=== PATIENT | female | born 1960 ===

== ENCOUNTER 2023-08-13 11:36 | Outpatient (REF) | payer MEDICAID, SELFPAY ==
[2023-08-13 13:26] LABS: Hematocrit 38.9 % (37.0-47.0); Hemoglobin 12.4 g/dl (12.0-16.0); Mean Corpuscular HGB Conc 31.9 g/dl (31.0-35.0); Mean Corpuscular Hemoglobin 29.7 pg (27.0-33.0); Mean Corpuscular Volume 93.1 fL (80.0-98.0); Mean Platelet Volume 11.3 fL (9.4-12.3); Platelet Count 278 X10*3/uL (160-400); Red Blood Count 4.18 X10*6/uL (4.20-5.50); Red Cell Distribution Width 12.7 % (11.0-16.0); White Blood Count 11.1 X10*3/uL (4.8-10.8)
[2023-08-13 13:38] LABS: Estimated Average Glucose 103 mg/dL; Hemoglobin A1c % 5.2 % (<6.0)
[2023-08-13 13:49] LABS: Syphilis Screen Nonreactive (Nonreactive)
[2023-08-13 13:52] LABS: Alanine Aminotransferase 7 U/L (0-31); Albumin Level 4.5 g/dL (3.5-5.0); Alkaline Phosphatase 91 U/L (39-117); Anion Gap 11 (12-20); Aspartate Amino Transferase 16 U/L (5-31); Bilirubin Total 0.3 mg/dL (0.0-1.0); Blood Urea Nitrogen 12 mg/dL (9-16); Calcium 9.5 mg/dL (8.4-10.2); Carbon Dioxide 26 mmol/L (22-29); Chloride 107 mmol/L (96-108); Cholesterol 203 mg/dL (<200); Estimated Glomerular Filt Rate > 60; Glucose Random 98 mg/dL (60-115); HDL Cholesterol 48 mg/dL (>40); LDL Cholesterol Calculated 130 mg/dL (<100); Potassium 4.2 mmol/L (3.3-5.1); Sodium 140 mmol/L (135-145); Total Protein 8.3 g/dL (6.5-8.0); Triglycerides 129 mg/dL (<150)
[2023-08-13 13:53] LABS: Creatinine Urine 63.19 mg/dL; Microalbum/Creatinine Ratio Ur 58.5 ug/mg cr (<30)
[2023-08-13 13:57] LABS: TSH reflex Free T4 1.24 uIU/mL (0.32-4.0)
[2023-08-13 15:43] LABS: CT PCR NOT DETECTED (Not Detect.); NG PCR NOT DETECTED (Not Detect.)
[2023-08-14 08:20] LABS: HBS Num1 11.99 mIU/mL (0-7.99); HBc Num1 6.98 S/CO (0.00-0.79); HIV AB/AG Nonreactive (Nonreactive); HIV Num 1 0.07 S/CO (0.00-0.99); ~HepC Num1 0.09 S/CO (0.00-0.79); ~Hepatitis C Antibody Nonreactive (Nonreactive)
[2023-08-14 11:04] LABS: HBS Num2 12.15 mIU/mL (0-7.99); HBc Num2 7.03 S/CO; HBc Num3 6.99 S/CO; Hepatitis B Core Antibody Reactive (Nonreactive); ~Hepatitis B Surface Antibody REACTIVE (Nonreactive)
[2023-08-15 17:04] LABS: TS Negative Control Passed; TS Panel A 0; TS Panel B 0; TS Positive Control Passed; TSpotTB Negative (Negative)
== END 2023-08-13 11:37 | disposition home or self-care (01) ==
LOC: HO.HHCL 11:36
PROVIDERS: Visit Provider Student in an Organized Health Care Education/Training Program
DX: Z00.00 Encounter for general adult medical examination without abnormal findings (principal); Z11.4 Encounter for screening for human immunodeficiency virus [HIV]; Z11.1 Encounter for screening for respiratory tuberculosis; Z11.3 Encounter for screening for infections with a predominantly sexual mode of transmission
CPT/HCPCS: 0353U; 36415; 80053; 80061; 82043; 82570; 83036; 84443; 85027; 86481; 86704; 86705; 86706; 86780; 86803; 87389

== ENCOUNTER 2023-09-17 | Outpatient (REF) | payer MEDICAID, SELFPAY ==
[2023-09-24 07:53] LABS: HPV mRNA E6/E7 rflx Not Detected (Not Detected)
== END 2023-09-17 00:01 ==
LOC: HO.HHCLNP
PROVIDERS: Visit Provider Advanced Practice Midwife
DX: Z12.4 Encounter for screening for malignant neoplasm of cervix (principal); Z11.51 Encounter for screening for human papillomavirus (HPV)
CPT/HCPCS: 87624; 88142

== ENCOUNTER 2023-10-30 09:36 | Outpatient (AMB) | payer MEDICAID, SELFPAY ==
--- NOTE | 2023-10-30 09:38 | MHC.OFFVIS ---
Intake Intake Visit Reasons: LDCT SD HPI HPI Comments History of Present Illness Details Susan is a pleasant year old female, current 1/2ppd smoker with a 47 PYH. Patient has been smoking since age 15 for 48 years at 1 ppd, decreased to 1/2 1-2 yrs ago. Denies marijuana use. Denies exposure to chemicals or substances like asbestos. Denies second hand smoke exposure. Denies known family history of lung cancer. Denies personal history of cancers. Denies chest CT in last year. Denies recent travel outside the [place]. Denies testing positive for COVID. Admits receiving COVID Vaccine. Denies fever, chills, chest pain, new cough, hemoptysis or unintentional weight loss. Lung Cancer Screening Questionnaire reviewed with patient by provider. Shared Decision Making Completed. Discussed in detail with patient, the risk versus benefit of LDCT screening. Patient in agreement of proceeding with scan. Assessment & Plan Assessment & Plan (1) Nicotine dependence, cigarettes, uncomplicated: Code(s): F17.210 - Nicotine dependence, cigarettes, uncomplicated Plan Shared decision-making visit completed today in office. This patient meets criteria for LDCT for lung cancer screening purposes and is asymptomatic. Offered smoking cessation, patient interested in referral to nurse navigator. Patient has been scheduled for a low dose chest CT for screening purposes at [facility]. We discussed how the results will be obtained depending on CT findings. RADS 1 and RADS 2 will receive a letter with results and will follow up for annual LDCT. Patient informed they will be contacted at later date to schedule upcoming LDCT scan. RADS 3 and RADS 4 will receive a telephone call, or an office visit after reviewing case at our Lung Cancer Conference to determine when the next LDCT will be scheduled or further interventions that may be needed. Discussed importance of screening program and compliance with yearly LDCT scan as scheduled. Risks, benefits, and alternatives were discussed in detail and patient agrees to proceed. Risks discussed include but are not limited to: radiation exposure and possibility of additional intervention for benign disease. Benefits include detection of lung cancer at an early stage. A copy of today's visit and LDCT results will be sent to patient's PCP. Incidental findings on LDCT are PCP's responsibility. If there are incidental findings, our office will ensure that PCP office is aware of these findings. All questions were answered and patient is in agreement of plan. Orders: Referrals Nurse Navigator Referral F17.210 - Nicotine dependence, cigarettes, uncomplicated Coding Level of Care Code Lung Cancer Screening G0296 Diagnoses Nicotine dependence, cigarettes, uncomplicated F17.210
== END 2023-10-30 10:42 | disposition home or self-care (01) ==
PROVIDERS: PCP Student in an Organized Health Care Education/Training Program; Referring Provider Student in an Organized Health Care Education/Training Program; Visit Provider Nurse Practitioner Family
DX: F17.210 Nicotine dependence, cigarettes, uncomplicated (principal)
CPT/HCPCS: G0296

== ENCOUNTER 2023-10-30 09:52 | Outpatient (REF) | payer MEDICAID, SELFPAY ==
--- NOTE | ~2023-10-30 | CT_ITS ---
EXAMINATION: CT CHEST SCREENING CLINICAL INFORMATION: Current smoker with 48 pack year history COMPARISON: None available. TECHNIQUE: Multidetector volumetric CT imaging of the chest is performed without contrast using low dose technique. Additional 2D coronal and sagittal reformatted images and axial 3D maximum intensity projection (MIP) images are generated on the CT workstation. This CT examination was performed using dose optimization techniques as appropriate, variously including the following: *Automated exposure control *Adjustment of mA and/or kV according to patient size (this includes techniques or standardized protocols for targeted exams where dose is matched to indication/reason for exam; i.e. extremities or head) *Use of iterative reconstruction technique DLP: 34 mGy-cm FINDINGS: TOWNSHIP SUPERVISOR: Hyperinflation LUNGS: Trachea and bronchi are patent. Centrilobular emphysema. 1.2 cm ill-defined, perivascular spiculated density left upper lobe, 5:181, coronal 7:40. 2.4 x 2.3 x 2.5 cm irregular multiloculated peribronchial cystic/cavitary process without significant wall thickening, axial 5:314, coronal 7:41. 5 mm part solid nodule, 5:293. 3 mm RUL nodule, 5:87. Scattered 2 mm nodules. MEDIASTINUM: Unremarkable thyroid. No pathologic lymphadenopathy. Nonenlarged heart. No pericardial effusion. Nonenlarged aorta with atherosclerotic calcifications. Nonenlarged pulmonary arteries. CORONARY ARTERY CALCIFICATION: Severe. PLEURA: There is no pleural effusion. No pleural mass or thickening. AXILLA: No lymphadenopathy. UPPER ABDOMEN: Unremarkable OSSEOUS STRUCTURES: No suspicious osseous lesions. CT/CT lung screening IMPRESSION: 1.2 cm left upper lobe spiculated irregular opacity. 2.5 cm multiloculated cystic/cavitary peribronchial process right lower lobe. ASSESSMENT: Lung-RADS category 4X: Suspicious RECOMMENDATION: PET/CT and/or tissue sampling depending on probability of malignancy and comorbidities. One month LDCT may be recommended to address potentially infectious or inflammatory conditions.
== END 2023-10-30 09:53 | disposition home or self-care (01) ==
LOC: HO.CT 09:52
PROVIDERS: PCP Student in an Organized Health Care Education/Training Program; Visit Provider Nurse Practitioner Family
DX: F17.210 Nicotine dependence, cigarettes, uncomplicated (principal)
CPT/HCPCS: 71271; G0296

== ENCOUNTER 2023-11-06 11:18 | Outpatient (REF) | payer MEDICAID, SELFPAY ==
[2023-11-06 13:24] LABS: MANUAL DIFF FLAG NO
[2023-11-06 13:31] LABS: Basophils Percent Auto 0.3 % (0-2); Eosinophils Absolute Auto 0.1 X10*3/uL (0.0-0.4); Eosinophils Percent Auto 0.4 % (0-4); Hematocrit 38.2 % (37.0-47.0); Hemoglobin 12.2 g/dl (12.0-16.0); Imm Gran Abs Auto 0.04 X10*3/uL (0.00-0.03); Imm Gran Pct Auto 0.3 % (0.0-0.4); Lymphocytes Absolute Auto 3.1 X10*3/uL (1.2-4.9); Lymphocytes Percent Auto 26.6 % (20-40); Mean Corpuscular HGB Conc 31.9 g/dl (31.0-35.0); Mean Corpuscular Hemoglobin 29.5 pg (27.0-33.0); Mean Corpuscular Volume 92.3 fL (80.0-98.0); Mean Platelet Volume 10.8 fL (9.4-12.3); Monocytes Absolute Auto 0.4 X10*3/uL (0.1-1.2); Monocytes Percent Auto 3.7 % (2-11); Neutrophils Absolute Auto 7.9 x10*3/uL (2.0-8.3); Neutrophils Percent Auto 68.7 % (45-73); Platelet Count 356 X10*3/uL (160-400); Red Blood Count 4.14 X10*6/uL (4.20-5.50); Red Cell Distribution Width 12.9 % (11.0-16.0); White Blood Count 11.5 X10*3/uL (4.8-10.8)
[2023-11-06 13:57] LABS: Alanine Aminotransferase 19 U/L (0-31); Albumin Level 4.3 g/dL (3.5-5.0); Alkaline Phosphatase 109 U/L (39-117); Anion Gap 12 (12-20); Aspartate Amino Transferase 24 U/L (5-31); Bilirubin Total 0.4 mg/dL (0.0-1.0); Blood Urea Nitrogen 12 mg/dL (9-16); Calcium 9.8 mg/dL (8.4-10.2); Carbon Dioxide 27 mmol/L (22-29); Chloride 105 mmol/L (96-108); Estimated Glomerular Filt Rate > 60; Glucose Random 90 mg/dL (60-115); Potassium 4.6 mmol/L (3.3-5.1); Sodium 139 mmol/L (135-145); Total Protein 8.1 g/dL (6.5-8.0)
== END 2023-11-06 11:19 | disposition home or self-care (01) ==
LOC: HO.HHCL 11:18
PROVIDERS: Visit Provider Student in an Organized Health Care Education/Training Program
DX: I10 Essential (primary) hypertension (principal); R63.6 Underweight
CPT/HCPCS: 36415; 80053; 85025

== ENCOUNTER 2023-11-23 13:44 | Outpatient (REF) | payer MEDICAID, SELFPAY ==
[2023-11-23 10:52] VITALS: PULSE 70; RESP 16; O2SAT 99
--- NOTE | 2023-11-23 15:30 | PFT_ITS ---
Flows: FEV1: 67 % of predicted at 1.55 L FVC: 81 % of predicted at 2.38 L FEV1/FVC: 65 % Bronchodilator response: Absent Volumes: No lung volume measurements available secondary to a technical issue. Diffusion capacity: Moderately decreased. Impression: Moderate obstructive ventilatory defect with no bronchodilator response. No lung volumes measurements available secondary to a technical issue. Decreased diffusion capacity suggests emphysema. MTDD
== END 2023-11-23 13:45 | disposition home or self-care (01) ==
LOC: HO.RESP 13:44
PROVIDERS: PCP Student in an Organized Health Care Education/Training Program; Visit Provider Internal Medicine Pulmonary Disease
DX: R06.00 Dyspnea, unspecified (principal); R91.8 Other nonspecific abnormal finding of lung field
CPT/HCPCS: 94010; 94640; 94727; 94729

== ENCOUNTER → 2023-11-23 15:30 | Outpatient (BNV) | payer MEDICAID, SELFPAY | PROVIDERS: PCP Student in an Organized Health Care Education/Training Program; Visit Provider Internal Medicine Pulmonary Disease | DX: R91.8 Other nonspecific abnormal finding of lung field (principal) | CPT/HCPCS: 94060; 94729 ==

== ENCOUNTER 2023-12-10 14:35 | Outpatient (AMB) | payer MEDICAID, SELFPAY ==
[2023-12-10 14:38] VITALS: BP 126/68; PULSE 86; O2SAT 98; BMI 17.0
--- NOTE | 2023-12-10 14:38 | A.OFFVIS_ITS ---
Intake Vital Signs 12/10/23 14:38 Height 5 ft 3 in Weight 95 lb 14.417 oz BMI 17.0 BP 126/68 Blood Pressure Location Rt brachial Position Sitting Pulse 86 Pulse Source Doppler Pulse Oximetry (%) 98 Oxygen Delivery Method Room Air Intake Visit Reasons: abnormal finding of lung Allergies No Known Allergies Allergy (Verified 12/10/23 14:44) HPI abnormal finding of lung HPI Details 63-year-old lady, 40+ year smoker with u nderlying at least moderate COPD referred after lung cancer screening/PET demonstrated several slightly PET positive bilateral pulmonary nodules and mediastinal lymphadenopathy for EBUS bronchoscopy. Patient states that she has been using Incruse with good control of her underlying symptoms. She denies any recent exacerbations. COUNTS INCLUDE 234 BEDS AT THE [facility] Social History (Updated 12/10/23 @ 14:46 by JAYDON Landin) Patient Tobacco Use Status: Current everyday Tobacco user Tobacco use type: Cigarette Cigarettes Per Day: 6 Years Smoked: started at 15 years old, use to smoke 1 PPD Review of Systems Const Denies daytime sleepiness, Denies excessive sweating, Denies fatigue, Denies fever(s), Denies lethargy, Denies malaise, Denies night sweats, Denies snoring and Denies weight loss Eyes Denies blurry vision and Denies itchy eyes ENT Denies nasal congestion, Denies post nasal drip, Denies sinus pain, Denies sinus pressure and Denies other ( Thrush) Card Denies chest pain, Denies pedal edema, Denies dyspnea, Denies orthopnea and Denies paroxysmal nocturnal dyspnea Resp Denies cough, Denies hemoptysis, Denies excessive phlegm production, Denies dyspnea, Denies snoring and Denies wheezing GI Denies abdominal pain and Denies heartburn Musc Denies myalgias, Denies arthralgias and Denies joint swelling Skin/Breast Denies rash Neuro Denies memory loss and Denies seizure-like activity Psych Denies abnormal sleep pattern, Denies anxiety and Denies memory loss Endo Denies excessive sweating, Denies fatigue and Denies heat intolerance Buster/Lymph Denies easy bruising Aller/Immun Denies itchy eyes, Denies seasonal rhinorrhea and Denies wheezing Physical Exam Vital Signs: Last Vital Signs Pulse 86 12/10/23 14:38 BP 126/68 12/10/23 14:38 Pulse Ox 98 12/10/23 14:38 Oxygen Delivery Method Room Air 12/10/23 14:38 BMI result Body Mass Index 17.0 Const General: no acute distress and alert Nutritional Appearance: thin Orientation/consciousness: Other orientation findings ( oriented) HEENT Head: Yes atraumatic Eyes General: appearance normal, both eyes and all related structures Sclerae: sclerae normal EOM: EOMs intact bilaterally Neck Neck: Yes supple Lymphatic: no lymphadenopathy noted Resp Effort & Inspection: normal respiratory effort and no use of accessory muscles Auscultation: clear to auscultation bilaterally Cardio Rate: regular rate Rhythm: regular rhythm Heart sounds: no gallops, no murmurs and no rubs Skin General skin exam: other ( warm) Extrem General: No clubbing, No cyanosis and No edema Assessment & Plan Assessment & Plan (1) COPD (chronic obstructive pulmonary disease): Code(s): J44.9 - Chronic obstructive pulmonary disease, unspecified Plan: Results of pulmonary function test reviewed, underlying moderate COPD, now well controlled on albuterol MDI. Continue current regimen. (2) Multiple pulmonary nodules: Code(s): R91.8 - Other nonspecific abnormal finding of lung field Plan: Results of lung cancer screening CT chest PET scan reviewed. Will plan for EBUS bronchoscopy. Coding Level of Care Code New Pt Level 4 (68203) Diagnoses COPD (chronic obstructive pulmonary disease) J44.9 Multiple pulmonary nodules R91.8
== END 2023-12-10 14:58 | disposition home or self-care (01) ==
PROVIDERS: PCP Student in an Organized Health Care Education/Training Program; Visit Provider Internal Medicine Pulmonary Disease
DX: J44.9 Chronic obstructive pulmonary disease, unspecified (principal); R91.8 Other nonspecific abnormal finding of lung field; F17.210 Nicotine dependence, cigarettes, uncomplicated
CPT/HCPCS: 99214

== ENCOUNTER → 2023-12-10 14:35 | Outpatient (BNVA) | payer MEDICAID, SELFPAY | PROVIDERS: PCP Student in an Organized Health Care Education/Training Program; Visit Provider Internal Medicine Pulmonary Disease | DX: J44.9 Chronic obstructive pulmonary disease, unspecified (principal); R91.8 Other nonspecific abnormal finding of lung field | CPT/HCPCS: 99212 ==

== ENCOUNTER 2023-12-17 08:27 | Day surgery (SDC) | payer MEDICAID, SELFPAY ==
[2023-12-15 10:28] VITALS: BMI 16.8
--- NOTE | 2023-12-16 10:48 | HO.ANESPROP2 ---
HPI - Anesthesia Eval Consult details Narrative: 63yo F for Endoscopic Bronchial Ultrasound PMFSH Active Problems Active Problems: All Active Problems (Updated 12/15/23 @ 10:27 by Fatoumata Maza RN) COPD (chronic obstructive pulmonary disease) (Acute) Multiple pulmonary nodules (Acute) Nicotine dependence, cigarettes, uncomplicated (Acute) Nicotine dependence (Acute) Past Medical History Medical History (Updated 12/15/23 @ 10:27 by Fatoumata Maza RN) Peripheral arterial disease HTN (hypertension) Hyperlipidemia COPD (chronic obstructive pulmonary disease) Social History Social History (Updated 12/10/23 @ 14:46 by JAYDON Landin) Patient Tobacco Use Status: Current everyday Tobacco user Tobacco use type: Cigarette Cigarettes Per Day: 6 Years Smoked: started at 15 years old, use to smoke 1 PPD Meds Allergies Allergy/AdvReac Type Severity Reaction Status Date / Time No Known Allergies Allergy Verified 12/10/23 14:44 Home Medications Medication Instructions Recorded Confirmed Last Taken Type albuterol sulfate 90 mcg/actuation 2 puff inhalation Q6H PRN wheezing 12/10/23 Unknown History aerosol inhaler (Ventolin HFA) aspirin 81 mg chewable tablet 1 tab PO DAILY 12/10/23 Unknown History atorvastatin 10 mg tablet 10 mg PO DAILY 12/10/23 Unknown History umeclidinium 62.5 mcg/actuation 1 inh inhalation DAILY 12/10/23 Unknown History blister powder for inhalation (Incruse Ellipta) Exam Height,Weight and Vital Signs: Height 5 ft 3 in Weight 43.091 kg Pertinent Lab Results Pertinent Lab Results: Laboratory Tests 11/06/23 11:20 WBC 11.5 H Hgb 12.2 Hct 38.2 Plt Count 356 D Sodium 139 Potassium 4.6 Chloride 105 Carbon Dioxide 27 BUN 12 Creatinine 0.92 Narrative Narrative: CT lung screening 10/2023 IMPRESSION: 1.2 cm left upper lobe spiculated irregular opacity. 2.5 cm multiloculated cystic/cavitary peribronchial process right lower lobe. Assessment and Plan Assessment Anesthesia Assessment: Chart Reviewed
--- NOTE | 2023-12-17 09:28 | MHC.SHP ---
Pre-Procedural Eval Section A - 24 Hr Update-Section A only Date of Service: 12/17/23 The patient is an INPATIENT: No Changes since office visit: Yes Patient answered all questions; No Cold of Flu in the past 2 weeks, No New Medical Problems and No Changes in Medication The patient has been examined within 24 hours of the surgical procedure. The History & Physical has been completed within 30 days and I have reviewed it.: Yes Section B - Complete if H&P > 30 days Chief Complaint: Other nonspecific abnormal finding of lung field Allergies: Allergies Allergy/AdvReac Type Severity Reaction Status Date / Time No Known Allergies Allergy Verified 12/10/23 14:44 Plan Diagnosis/Plan: Unchanged I have reviewed the history and physical and performed a pertinent physical examination on my patient. No changes have occurred unless specified. Time Spent With Patient Time: Total time managing care of this patient today ____ minutes.
[2023-12-17 09:29] VITALS: BMI 16.9
[2023-12-17 09:48] VITALS: BP 142/80; PULSE 77; RESP 18; TEMP 36.9; O2SAT 100
[2023-12-17] MEDS: Lactated Ringers 1,000 ML 100 ML IVCONT (09:58)
[2023-12-17 11:24] VITALS: BP 144/74; PULSE 88; RESP 18; TEMP 36.1; O2SAT 100
[2023-12-17 11:29] VITALS: BP 122/68; PULSE 65; RESP 18; O2SAT 100
[2023-12-17 11:34] VITALS: BP 129/65; PULSE 64; RESP 18; O2SAT 99
[2023-12-17 11:39] VITALS: BP 129/66; PULSE 73; RESP 17; O2SAT 99
--- NOTE | 2023-12-17 11:44 | PM.OP ---
Brief Operative Note Date of Service: 12/17/23 Pre-op diagnosis: Mediastinal lymphadenopathy Post-op diagnosis: same Procedure: Flexible bronchoscopy performed with patient intubated for the procedure. Bronchoscope advanced through the tracheobronchial tree with visualization of normal bronchial mucosa and no endobronchial lesions. Then endobronchial ultrasound guided biopsy of station 7 and station 4R performed with sample sent for further pathologic testing. Patient tolerated procedure well and was returned to PACU in stable condition. Surgeon: Juancarlos Albarado MD Anesthesia: GETA Was an Senior Sales Operations Analyst used for this Procedure?: No Estimated blood loss (mL): 0 Condition: stable Disposition: PACU
[2023-12-17 11:54] VITALS: BP 136/72; PULSE 69; RESP 17; TEMP 36.6; O2SAT 97
== END 2023-12-17 12:31 | disposition home or self-care (01) ==
PROVIDERS: PCP Student in an Organized Health Care Education/Training Program; Visit Provider Internal Medicine Pulmonary Disease
PROC: (CPT 31652; principal; 2023-12-17 10:00)
DX: R91.8 Other nonspecific abnormal finding of lung field (principal); R59.0 Localized enlarged lymph nodes; J44.9 Chronic obstructive pulmonary disease, unspecified; I10 Essential (primary) hypertension; E78.5 Hyperlipidemia, unspecified; F17.210 Nicotine dependence, cigarettes, uncomplicated
CPT/HCPCS: 31652; 88172; 88173; 88177; 88305; J0171; J1100; J2250; J2405; J2704; J3010

== ENCOUNTER → 2023-12-17 08:27 | Outpatient (BNV) | payer MEDICAID, SELFPAY | PROVIDERS: PCP Student in an Organized Health Care Education/Training Program; Visit Provider Internal Medicine Pulmonary Disease | DX: R91.8 Other nonspecific abnormal finding of lung field (principal); R59.0 Localized enlarged lymph nodes | CPT/HCPCS: 31652 ==

== ENCOUNTER 2024-01-25 12:52 | Outpatient (AMB) | payer MEDICAID, SELFPAY ==
[2024-01-25 12:58] VITALS: BP 117/67; PULSE 80; O2SAT 98; BMI 17.4
--- NOTE | 2024-01-25 12:58 | A.OFFVIS_ITS ---
Vital Signs 01/25/24 12:58 Height 5 ft 3 in Weight 98 lb 1.691 oz BMI 17.4 BP 117/67 Blood Pressure Location Rt brachial Position Sitting Pulse 80 Pulse Source Doppler Pulse Oximetry (%) 98 Oxygen Delivery Method Room Air Intake Visit Reasons: S/p bronch Allergies No Known Allergies Allergy (Verified 12/10/23 14:44) HPI HPI S/p bronch: Details: 63-year-old lady, 40+ year smoker with underlying at least moderate COPD referred after lung cancer screening/PET demonstrated several slightly PET positive bilateral pulmonary nodules and mediastinal lymphadenopathy for EBUS bronchoscopy. Patient states that she has been using Incruse with good control of her underlying symptoms. She denies any recent exacerbations. After the last office visit patient had EBUS bronchoscopy that showed no malignant findings. She also has ran out of her Incruse in his symptom control has been suboptimal. She denies recent exacerbations. [facility] Medical History (Updated 12/15/23 @ 10:27 by Fatoumata Maza RN) Peripheral arterial disease HTN (hypertension) Hyperlipidemia COPD (chronic obstructive pulmonary disease) Social History (Updated 01/25/24 @ 13:03 by JAYDON Landin) Patient Tobacco Use Status: Current everyday Tobacco user Tobacco use type: Cigarette Cigarettes Per Day: 8 Years Smoked: started at 15 years old, use to smoke 1 PPD Review of Systems Const Denies daytime sleepiness, Denies excessive sweating, Denies fatigue, Denies fever(s), Denies lethargy, Denies malaise, Denies night sweats, Denies snoring and Denies weight loss Eyes Denies blurry vision and Denies itchy eyes ENT Denies nasal congestion, Denies post nasal drip, Denies sinus pain, Denies sinus pressure and Denies other ( Thrush) Card Denies chest pain, Denies pedal edema, Denies dyspnea, Denies orthopnea and Denies paroxysmal nocturnal dyspnea Resp Denies cough, Denies hemoptysis, Denies excessive phlegm production, Denies dyspnea, Denies snoring and Denies wheezing GI Denies abdominal pain and Denies heartburn Musc Denies myalgias, Denies arthralgias and Denies joint swelling Skin/Breast Denies rash Neuro Denies memory loss and Denies seizure-like activity Psych Denies abnormal sleep pattern, Denies anxiety and Denies memory loss Endo Denies excessive sweating, Denies fatigue and Denies heat intolerance Buster/Lymph Denies easy bruising Aller/Immun Denies itchy eyes, Denies seasonal rhinorrhea and Denies wheezing Physical Exam Vital Signs: Last Vital Signs Pulse 80 01/25/24 12:58 BP 117/67 01/25/24 12:58 Pulse Ox 98 01/25/24 12:58 Oxygen Delivery Method Room Air 01/25/24 12:58 BMI result Body Mass Index 17.4 Const General: no acute distress and alert Nutritional Appearance: not obese Orientation/consciousness: Other orientation findings ( oriented) HEENT Head: Yes atraumatic Eyes General: appearance normal, both eyes and all related structures Sclerae: sclerae normal EOM: EOMs intact bilaterally Neck Neck: Yes supple Lymphatic: no lymphadenopathy noted Resp Effort & Inspection: normal respiratory effort and no use of accessory muscles Auscultation: clear to auscultation bilaterally Cardio Rate: regular rate Rhythm: regular rhythm Heart sounds: no gallops, no murmurs and no rubs Skin General skin exam: other ( warm) Extrem General: No clubbing, No cyanosis and No edema Assessment & Plan Assessment & Plan (1) COPD (chronic obstructive pulmonary disease): Code(s): J44.9 - Chronic obstructive pulmonary disease, unspecified Category: Medical Plan: Suboptimally controlled as patient has ran out of Incruse. Restart Incruse continue albuterol MDI. (2) Multiple pulmonary nodules: Code(s): R91.8 - Other nonspecific abnormal finding of lung field Category: Medical Plan: Status post EBUS of mediastinal lymph nodes with no malignant findings. Will repeat CT chest in 6 months. Ordered. (3) Nicotine dependence: Code(s): F17.200 - Nicotine dependence, unspecified, uncomplicated Category: Medical Plan: Continue with lung cancer screening. Orders: Orders CT chest wo IV con 06/06/24 R91.8 - Other nonspecific abnormal finding of lung field Coding Level of Care Code Est Pt Level 4 (98144) Diagnoses COPD (chronic obstructive pulmonary disease) J44.9 Multiple pulmonary nodules R91.8 Nicotine dependence F17.200
== END 2024-01-25 13:15 | disposition home or self-care (01) ==
PROVIDERS: PCP Student in an Organized Health Care Education/Training Program; Referring Provider Student in an Organized Health Care Education/Training Program; Visit Provider Internal Medicine Pulmonary Disease
DX: J44.9 Chronic obstructive pulmonary disease, unspecified (principal); R91.8 Other nonspecific abnormal finding of lung field; F17.200 Nicotine dependence, unspecified, uncomplicated
CPT/HCPCS: 99214

== ENCOUNTER → 2024-01-25 12:52 | Outpatient (BNVA) | payer MEDICAID, SELFPAY | PROVIDERS: PCP Student in an Organized Health Care Education/Training Program; Visit Provider Internal Medicine Pulmonary Disease | DX: J44.9 Chronic obstructive pulmonary disease, unspecified (principal); R91.8 Other nonspecific abnormal finding of lung field; F17.210 Nicotine dependence, cigarettes, uncomplicated | CPT/HCPCS: 99212 ==

== ENCOUNTER 2024-01-27 13:12 | Outpatient (REF) | payer MEDICAID, SELFPAY ==
[2024-01-27 16:56] LABS: Alanine Aminotransferase 22 U/L (0-31); Albumin Level 4.3 g/dL (3.5-5.0); Alkaline Phosphatase 87 U/L (39-117); Anion Gap 13 (12-20); Aspartate Amino Transferase 20 U/L (5-31); Bilirubin Total 0.7 mg/dL (0.0-1.0); Blood Urea Nitrogen 14 mg/dL (9-16); Calcium 9.3 mg/dL (8.4-10.2); Carbon Dioxide 25 mmol/L (22-29); Chloride 106 mmol/L (96-108); Estimated Glomerular Filt Rate > 60; Glucose Random 87 mg/dL (60-115); Sodium 140 mmol/L (135-145); Total Protein 7.8 g/dL (6.5-8.0)
== END 2024-01-27 13:13 | disposition home or self-care (01) ==
LOC: HO.HHCL 13:12
PROVIDERS: Visit Provider Student in an Organized Health Care Education/Training Program
DX: I10 Essential (primary) hypertension (principal)
CPT/HCPCS: 36415; 80053

== ENCOUNTER 2024-02-26 10:34 | Outpatient (REF) | payer MEDICAID, SELFPAY ==
--- NOTE | ~2024-02-26 | MM_ITS ---
EXAMINATION: BONE DENSITOMETRY CLINICAL INDICATION: Post menopausal. Low weight. Smoker. COMPARISON: This is the patient's baseline examination. TECHNIQUE: Using a [employer]ela DXA System (software version: 13.1) manufactured by [employer], dual-energy x-ray absorptiometry was performed of the lumbar spine and left hip. The images are of good technical quality. Summary results are attached. FINDINGS: AP SPINE L1-L4: BMD 1.222 g/cm2, Z-score 2.5, T-score 0.3, normal. LEFT FEMUR, NECK: BMD 0.880 g/cm2, Z-score 0.7, T-score -1.1, osteopenia. LEFT FEMUR, TOTAL: BMD 0.957 g/cm2, Z-score 1.2, T-score -0.4, normal. IDENTIFIED RISK FACTORS: Current smoker. Low body weight. Low calcium intake. Menopause. HISTORY OF FRACTURE: None listed. MEDICATIONS: None listed. MM/XR DEXA axial skeleton IMPRESSION: 1. DIAGNOSIS: Osteopenia based on the lowest T-score value of -1.1 in the femoral neck applying World Health Organization criteria. 2. 10-YEAR FRACTURE RISK PREDICTION, FRAX: Major osteoporotic fracture (clinical spine, forearm, hip or shoulder) 3.6%. Hip fracture 0.5%. 3. Treatment Recommendations: NOF guidelines recommend consideration for treatment in postmenopausal women and men age 50 and older presenting with the following: -A hip or vertebral (clinical or morphometric) fracture. -T-score less than or equal to -2.5 at the femoral neck or spine after appropriate evaluation to exclude secondary causes. -Low bone mass at the hip or spine and a 10-year fracture probability by FRAX of greater than or equal to 3% for hip fracture or greater than or equal to 20% for major osteoporotic fracture based on the [place] adapted WHO algorithm. 4. Other Recommendations: All treatment decisions require clinical judgment and consideration of individual patient factors, including patient preferences, comorbidities, previous drug use, risk factors not captured in the FRAX model (e.g. frailty, falls, vitamin D deficiency, increased bone turnover, interval significant decline in bone density) and possible under or overestimation of fracture risk by FRAX. Additional medical evaluation for secondary cause of low bone mineral density may be appropriate. FUTURE SCAN RECOMMENDATION: People with diagnosed cases of osteoporosis or at high risk for fracture should have regular bone mineral density tests. For patients eligible for Medicare, routine testing is allowed once every 2 years. The testing frequency can be increased to one year for patients who have rapidly progressing disease, those who are receiving or discontinuing medical therapy to restore bone mass, or have additional risk factors.
== END 2024-02-26 10:35 | disposition home or self-care (01) ==
LOC: HO.MAMMO 10:34
PROVIDERS: PCP Student in an Organized Health Care Education/Training Program; Visit Provider Advanced Practice Midwife
DX: Z13.820 Encounter for screening for osteoporosis (principal); Z78.0 Asymptomatic menopausal state
CPT/HCPCS: 77080

== ENCOUNTER 2024-03-02 08:36 | Outpatient (REF) | payer MEDICAID, SELFPAY ==
[2024-03-02 12:01] LABS: MANUAL DIFF FLAG NO
[2024-03-02 12:18] LABS: Basophils Absolute Auto 0.1 X10*3/uL (0.0-0.2); Basophils Percent Auto 0.4 % (0-2); Eosinophils Absolute Auto 0.1 X10*3/uL (0.0-0.4); Eosinophils Percent Auto 0.4 % (0-4); Hematocrit 38.2 % (37.0-47.0); Hemoglobin 12.5 g/dl (12.0-16.0); Imm Gran Abs Auto 0.08 X10*3/uL (0.00-0.03); Imm Gran Pct Auto 0.6 % (0.0-0.4); Lymphocytes Absolute Auto 3.1 X10*3/uL (1.2-4.9); Lymphocytes Percent Auto 21.8 % (20-40); Mean Corpuscular HGB Conc 32.7 g/dl (31.0-35.0); Mean Corpuscular Hemoglobin 30.3 pg (27.0-33.0); Mean Corpuscular Volume 92.7 fL (80.0-98.0); Mean Platelet Volume 11.1 fL (9.4-12.3); Monocytes Absolute Auto 0.8 X10*3/uL (0.1-1.2); Monocytes Percent Auto 5.4 % (2-11); Neutrophils Percent Auto 71.4 % (45-73); Platelet Count 266 X10*3/uL (160-400); Red Blood Count 4.12 X10*6/uL (4.20-5.50); Red Cell Distribution Width 13.7 % (11.0-16.0)
[2024-03-02 12:34] LABS: Cholesterol 181 mg/dL (<200); HDL Cholesterol 53 mg/dL (>40); LDL Cholesterol Calculated 102 mg/dL (<100); Triglycerides 134 mg/dL (<150)
== END 2024-03-02 08:37 | disposition home or self-care (01) ==
LOC: HO.HHCL 08:36
PROVIDERS: Visit Provider Student in an Organized Health Care Education/Training Program
DX: H35.033 Hypertensive retinopathy, bilateral (principal)
CPT/HCPCS: 36415; 80061; 85025

== ENCOUNTER 2024-03-08 18:23 | Outpatient (REF) | payer MEDICAID, SELFPAY ==
[2024-03-08 19:26] LABS: Creatinine Urine 113.96 mg/dL; Microalbum/Creatinine Ratio Ur 14.9 ug/mg cr (<30)
== END 2024-03-08 18:24 | disposition home or self-care (01) ==
LOC: HO.HHCLNP 18:23
PROVIDERS: Visit Provider Student in an Organized Health Care Education/Training Program
DX: Z13.89 Encounter for screening for other disorder (principal)
CPT/HCPCS: 82043; 82570

== ENCOUNTER → 2024-04-07 13:54 | Outpatient (BNV) | payer MEDICAID, SELFPAY | PROVIDERS: PCP Student in an Organized Health Care Education/Training Program; Referring Provider Student in an Organized Health Care Education/Training Program; Visit Provider Internal Medicine Medical Oncology | DX: D72.829 Elevated white blood cell count, unspecified (principal) | CPT/HCPCS: 99214 ==

== ENCOUNTER 2024-05-23 17:00 | Outpatient (REF) | payer MEDICAID, SELFPAY ==
--- NOTE | ~2024-05-23 | CT_ITS ---
EXAMINATION: CT CHEST WITHOUT CONTRAST CLINICAL INFORMATION: Multiple pulmonary nodules COMPARISON: 10/30/2023 TECHNIQUE: Multidetector volumetric CT imaging of the chest was done. Axial MIP volume rendering provided. Sagittal and coronal reformatted images were obtained. This CT examination was performed using dose optimization techniques as appropriate, variously including the following: *Automated exposure control *Adjustment of mA and/or kV according to patient size (this includes techniques or standardized protocols for targeted exams where dose is matched to indication/reason for exam; i.e. extremities or head) *Use of iterative reconstruction technique DLP: 90 mGy-cm FINDINGS: CABLE ARMORER: Clear lungs LUNGS: Study significantly limited by respiratory motion. Trachea and bronchi are patent. Left apical pleural thickening. Paraseptal and centrilobular emphysema. 3.1 x 2.2 x 2.9 cm peribronchial shaggy cavitary process in the right lower lobe. On previous study this measured 2.4 x 2.3 x 2.0 cm. Ill-defined 5 mm right lower lobe nodule, 6:236, probably unchanged given study limitations. New irregular 4-5mm nodular opacity questioned in the right lower lobe on 6:201. 2 mm RUL nodule, 6:64 is less conspicuous currently. Redemonstration spiculated markings measuring 1.2 cm in the left upper lobe, 6: 55. MEDIASTINUM: No pathologic lymphadenopathy. Unremarkable thyroid. Diffusely mildly thickened esophagus. Nonenlarged heart. No pericardial effusion. Nonaneurysmal aorta with atherosclerotic calcifications. Nonenlarged pulmonary arteries. CORONARY ARTERY CALCIFICATION: Severe PLEURA: There is no pleural effusion. No pleural mass or thickening. AXILLA: No lymphadenopathy. UPPER ABDOMEN: Unremarkable. OSSEOUS STRUCTURES: Unremarkable. CT/CT chest wo IV con IMPRESSION: Study is extremely limited due to respiratory motion. Apparent increase in size right lower lobe cavitary process may be influenced by motion artifact. Question newly appearing 4 to 5 mm ill-defined right lower lobe lung nodule. Stable spiculated left upper lobe process and other lung nodules as described. RECOMMENDATION: Repeat unenhanced chest CT with adequate suspension of respiration. Electronically signed by: Tia Astorga MD 07/26/2024 02:38 PM EDT
== END 2024-05-23 17:01 | disposition home or self-care (01) ==
LOC: HO.CT 17:00
PROVIDERS: PCP Student in an Organized Health Care Education/Training Program; Visit Provider Internal Medicine Pulmonary Disease
DX: R91.8 Other nonspecific abnormal finding of lung field (principal)
CPT/HCPCS: 71250

== ENCOUNTER 2024-08-17 12:32 | Outpatient (AMB) | payer MEDICAID, SELFPAY ==
[2024-08-17 13:17] VITALS: BP 119/77; PULSE 79; O2SAT 99; BMI 17.8
--- NOTE | 2024-08-17 13:17 | MHC.OFFVIS ---
Vital Signs 08/17/24 13:17 Height 5 ft 3 in Weight 100 lb 4.965 oz BMI 17.8 BP 119/77 Blood Pressure Location Rt brachial Position Sitting Pulse 79 Pulse Source Doppler Pulse Oximetry (%) 99 Oxygen Delivery Method Room Air Intake Visit Reasons: COPD Receiver Dispatcher Required: Yes Receiver Dispatcher Name: Sheila Pappas Joe Allergies No Known Allergies Allergy (Verified 08/17/24 13:21) HPI HPI COPD: Details: 64-year-old lady, 40+ year smoker with underlying at least moderate COPD referred after lung cancer screening/PET demonstrated several slightly PET positive bilateral pulmonary nodules and mediastinal lymphadenopathy for EBUS bronchoscopy. Patient states that she has been using Incruse with good control of her underlying symptoms. She denies any recent exacerbations. Had an EBUS bronchoscopy that showed no malignant findings. After the last office visit patient had follow-up CT chest that was inconclusive secondary to motion artifacts. [facility] Medical History (Updated 04/07/24 @ 16:34 by Courtney Stark MD) Peripheral arterial disease HTN (hypertension) Hyperlipidemia COPD (chronic obstructive pulmonary disease) Social History (Updated 08/17/24 @ 13:23 by Sheila Tim Jarrett) Household Members: Family Patient Tobacco Use Status: Current everyday Tobacco user Tobacco use type: Cigarette Years Smoked: started at 15 years old, use to smoke 1 PPD, quit 3 wks ago 06/2024 service: No Current occupational status: employed Review of Systems Const Denies daytime sleepiness, Denies excessive sweating, Denies fatigue, Denies fever(s), Denies lethargy, Denies malaise, Denies night sweats, Denies snoring and Denies weight loss Eyes Denies blurry vision and Denies itchy eyes ENT Denies nasal congestion, Denies post nasal drip, Denies sinus pain, Denies sinus pressure and Denies other ( Thrush) Card Denies chest pain, Denies pedal edema, Denies dyspnea, Denies orthopnea and Denies paroxysmal nocturnal dyspnea Resp Denies cough, Denies hemoptysis, Denies excessive phlegm production, Denies dyspnea, Denies snoring and Denies wheezing GI Denies abdominal pain and Denies heartburn Musc Denies myalgias, Denies arthralgias and Denies joint swelling Skin/Breast Denies rash Neuro Denies memory loss and Denies seizure-like activity Psych Denies abnormal sleep pattern, Denies anxiety and Denies memory loss Endo Denies excessive sweating, Denies fatigue and Denies heat intolerance Buster/Lymph Denies easy bruising Aller/Immun Denies itchy eyes, Denies seasonal rhinorrhea and Denies wheezing Physical Exam Vital Signs: Last Vital Signs Pulse 79 08/17/24 13:17 BP 119/77 08/17/24 13:17 Pulse Ox 99 08/17/24 13:17 Oxygen Delivery Method Room Air 08/17/24 13:17 BMI result Body Mass Index 17.8 Const General: no acute distress and alert Nutritional Appearance: not obese Orientation/consciousness: Other orientation findings ( oriented) HEENT Head: Yes atraumatic Eyes General: appearance normal, both eyes and all related structures Sclerae: sclerae normal EOM: EOMs intact bilaterally Neck Neck: Yes supple Lymphatic: no lymphadenopathy noted Resp Effort & Inspection: normal respiratory effort and no use of accessory muscles Auscultation: clear to auscultation bilaterally Cardio Rate: regular rate Rhythm: regular rhythm Heart sounds: no gallops, no murmurs and no rubs Skin General skin exam: other ( warm) Extrem General: No clubbing, No cyanosis and No edema Assessment & Plan Assessment & Plan (1) COPD (chronic obstructive pulmonary disease): Code(s): J44.9 - Chronic obstructive pulmonary disease, unspecified Category: Medical Plan: Reasonable control Incruse and albuterol MDI. Continue current regimen. (2) Multiple pulmonary nodules: Code(s): R91.8 - Other nonspecific abnormal finding of lung field Category: Medical Plan: Inconclusive results of follow-up CT scan, will repeat CT scan in 3 months. Orders: Orders CT chest wo IV con 10/31/24 R91.8 - Other nonspecific abnormal finding of lung field Medications: New levofloxacin 750 mg PO DAILY 7 tabs 0RF Coding Level of Care Code Est Pt Level 4 (81854) Diagnoses COPD (chronic obstructive pulmonary disease) J44.9 Multiple pulmonary nodules R91.8
== END 2024-08-17 13:39 | disposition home or self-care (01) ==
PROVIDERS: PCP Student in an Organized Health Care Education/Training Program; Visit Provider Internal Medicine Pulmonary Disease
DX: J44.9 Chronic obstructive pulmonary disease, unspecified (principal); R91.8 Other nonspecific abnormal finding of lung field
CPT/HCPCS: 99214

== ENCOUNTER → 2024-08-17 12:32 | Outpatient (BNVA) | payer MEDICAID, SELFPAY | PROVIDERS: PCP Student in an Organized Health Care Education/Training Program; Visit Provider Internal Medicine Pulmonary Disease | DX: J44.9 Chronic obstructive pulmonary disease, unspecified (principal); R91.8 Other nonspecific abnormal finding of lung field | CPT/HCPCS: 99212 ==

== ENCOUNTER 2024-09-30 16:29 | Outpatient (REF) | payer MEDICAID, SELFPAY ==
--- NOTE | ~2024-09-30 | CT_ITS ---
CLINICAL HISTORY: R91.8 - Other nonspecific abnormal finding of lung field CT chest without contrast Comparison: CT/CT/SR - CT CHEST WO IV CON - 05/23/24 17:[address]/CT/SR - CT LUNG SCREENING - 10/30/23 10:02 EST Findings: Ill-defined irregularly marginated cystic/cavitary lesion in the central right lower lobe currently measuring approximate 26 x 37 x 28 mm. Similar measurements obtained on prior although more recent CT degraded by motion artifact. Irregular wall thickening without large soft tissue component. Still appearance remains concerning for potential neoplasm. If not previously performed, PET-CT fusion scan and/or histologic evaluation suggested. A nearby 7 x 5 mm nodule current image 34 series 4 not appreciably changed. Previously described 3 mm right upper lobe nodule current image 10 series 4 stable. A 1.2 cm perivascular spiculated nodule left upper lobe is less apparent currently now measuring approximately 6 mm. 4 mm nodule superior segment left lower lobe current image 32, stable to priors, as is a minimal linear density in the anterior superior segment left lower lobe image 31. No clearly new nodule evident. Scattered cysts left lung without suspicious appearance. Similar generalized emphysematous changes. No consolidation or pleural effusion. No pneumothorax. Thoracic inlet intact. No thyroid nodules. No enlarged mediastinal or hilar lymph nodes. Heart size normal. No pericardial effusion. Extensive coronary artery calcification. Esophagus within normal limits. No hiatal hernia. No acute process evident upper abdomen. No acute or aggressive appearing bone lesion. IMPRESSION: Overall similar appearance to concerning multicystic lesion in the central right lower lobe. If not previously performed, PET-CT fusion scan and/or histologic evaluation suggested. Otherwise continued close CT follow-up suggested. Additional small bilateral pulmonary nodules also stable. Stable emphysematous changes This document has been electronically signed by: Cam King MD on 10/03/2024 11:25:24
== END 2024-09-30 16:30 | disposition home or self-care (01) ==
LOC: HO.CT 16:29
PROVIDERS: PCP Student in an Organized Health Care Education/Training Program; Visit Provider Internal Medicine Pulmonary Disease
DX: R91.8 Other nonspecific abnormal finding of lung field (principal)
CPT/HCPCS: 71250

== ENCOUNTER → 2024-09-30 16:31 | Outpatient (BNV) | payer MEDICAID, SELFPAY | PROVIDERS: PCP Student in an Organized Health Care Education/Training Program; Visit Provider Radiology Diagnostic Radiology | DX: R91.8 Other nonspecific abnormal finding of lung field (principal) | CPT/HCPCS: 71250 ==

== ENCOUNTER 2024-11-17 10:36 | Outpatient (AMB) | payer MEDICAID, SELFPAY ==
--- NOTE | 2024-11-17 10:41 | MHC.OFFVIS ---
Vital Signs 11/17/24 10:42 Height 5 ft 3 in Weight 99 lb 3.328 oz BMI 17.6 BP 144/78 H Blood Pressure Location Lt brachial Position Sitting Pulse 66 Pulse Source Doppler Pulse Oximetry (%) 98 Oxygen Delivery Method Room Air Intake Visit Reasons: COPD Advanced Manufacturing Technician Required: Yes Advanced Manufacturing Technician Name: Sheila Pappas Joe Allergies No Known Allergies Allergy (Verified 11/17/24 10:43) HPI HPI COPD: Details: 64-year-old lady, 40+ year smoker with underlying at least moderate COPD referred after lung cancer screening/PET demonstrated several slightly PET positive bilateral pulmonary nodules and mediastinal lymphadenopathy for EBUS bronchoscopy. Patient states that she has been using Incruse with good control of her underlying symptoms. She denies any recent exacerbations. Had an EBUS bronchoscopy that showed no malignant findings. After the last office visit patient had follow-up CT chest that showed stable pulmonary findings. She continued on Incruse, however with slowly worsening symptoms, including nocturnal symptoms, and also now with cough productive of yellowish to greenish sputum. [facility] Medical History (Updated 04/07/24 @ 16:34 by Courtney Stark MD) Peripheral arterial disease HTN (hypertension) Hyperlipidemia COPD (chronic obstructive pulmonary disease) Social History (Updated 08/17/24 @ 13:23 by JAYDON Landin) Household Members: Family Patient Tobacco Use Status: Current everyday Tobacco user Tobacco use type: Cigarette Years Smoked: started at 15 years old, use to smoke 1 PPD, quit 3 wks ago 06/2024 service: No Current occupational status: employed Review of Systems Const Denies daytime sleepiness, Denies excessive sweating, Denies fatigue, Denies fever(s), Denies lethargy, Denies malaise, Denies night sweats, Denies snoring and Denies weight loss Eyes Denies blurry vision and Denies itchy eyes ENT Denies nasal congestion, Denies post nasal drip, Denies sinus pain, Denies sinus pressure and Denies other ( Thrush) Card Denies chest pain, Denies pedal edema, Denies dyspnea, Denies orthopnea and Denies paroxysmal nocturnal dyspnea Resp Reports cough, Denies hemoptysis, Reports excessive phlegm production, Denies dyspnea, Denies snoring and Denies wheezing GI Denies abdominal pain and Denies heartburn Musc Denies myalgias, Denies arthralgias and Denies joint swelling Skin/Breast Denies rash Neuro Denies memory loss and Denies seizure-like activity Psych Denies abnormal sleep pattern, Denies anxiety and Denies memory loss Endo Denies excessive sweating, Denies fatigue and Denies heat intolerance Buster/Lymph Denies easy bruising Aller/Immun Denies itchy eyes, Denies seasonal rhinorrhea and Denies wheezing Physical Exam Vital Signs: Last Vital Signs Pulse 66 11/17/24 10:42 BP 144/78 H 11/17/24 10:42 Pulse Ox 98 11/17/24 10:42 Oxygen Delivery Method Room Air 11/17/24 10:42 BMI result Body Mass Index 17.6 Const General: no acute distress and alert Nutritional Appearance: not obese Orientation/consciousness: Other orientation findings ( oriented) HEENT Head: Yes atraumatic Eyes General: appearance normal, both eyes and all related structures Sclerae: sclerae normal EOM: EOMs intact bilaterally Neck Neck: Yes supple Lymphatic: no lymphadenopathy noted Resp Effort & Inspection: normal respiratory effort and no use of accessory muscles Auscultation: clear to auscultation bilaterally Cardio Rate: regular rate Rhythm: regular rhythm Heart sounds: no gallops, no murmurs and no rubs Skin General skin exam: other ( warm) Extrem General: No clubbing, No cyanosis and No edema Assessment & Plan Assessment & Plan (1) COPD (chronic obstructive pulmonary disease): Code(s): J44.9 - Chronic obstructive pulmonary disease, unspecified Category: Medical Plan: Suboptimally controlled on Incruse, will change to Anoro. Continue albuterol MDI. Add duo nebs. Will treat acute exacerbation with a course of Levaquin. (2) Multiple pulmonary nodules: Code(s): R91.8 - Other nonspecific abnormal finding of lung field Category: Medical Plan: Results of 3 months follow-up CT chest reviewed and show stable findings. Will repeat CT chest in 6 months. Orders: Orders CT chest wo IV con 05/07/25 R91.8 - Other nonspecific abnormal finding of lung field Medications: New umeclidinium-vilanterol 62.5-25 mcg/actuation (Anoro Ellipta) 1 inh inhalation DAILY 1 ea 6RF ipratropium-albuterol 0.5 mg-3 mg(2.5 mg base)/3 mL 3 mL inhalation Q4-6H PRN 180 mL 6RF wheezing levofloxacin 750 mg PO DAILY 7 tabs 0RF Coding Level of Care Code Est Pt Level 4 (76963) Complex EM visit Add On G2211 Diagnoses COPD (chronic obstructive pulmonary disease) J44.9 Multiple pulmonary nodules R91.8
[2024-11-17 10:42] VITALS: BP 144/78; PULSE 66; O2SAT 98; BMI 17.6
--- OUTSIDE RECORDS SUMMARY | 2024-11-17 11:45 | XMS_ITS | Encounter Summary ---
Author Organization [facility] Address [address] [place] [id number] Care Team Providers Care Service Bar Cashier Name Role Phone Unavailable Primary Care Provider Unavailabl e Reason for Visit * Imaging (Routine) - Closed Specialty Diagnoses / Procedures Referred By Bernice t Referred To Contact Diagnoses Bilateral carotid bruits Procedures Vascular US duplex carotid bilateral Beau Nails MD [address] [place] [id number] Phone: tel: fax: [facility] Referral ID Status Reason Start Date Expiration Date Visits Re quested Visits Authorized [id number] Closed 11/07/2024 11/07/2025 1 1 Encounter Details Date Type Department Care Team (Latest Contact Info) Description 11/11/2024 9:45 AM EST Ancillary Procedure [facility] [address] [phone] Bilateral carotid bruits Social History Tobacco Use Types Packs/Day Years Used Date Smoking Tobacco: Every Day Cigarettes Smokeless Tobacco: Never Comments:3 cigarettes per da y Alcohol Use Standard Drinks/Week Comments Not Currently 0 (1 standard drink = 0.6 oz pur e alcohol) Comments Unknown Sex and Gender Information Value Date Recorded Sex Assigned at Not on file Legal Sex Female 2:17 PM EST Gender Identity Not on file Sexual Orientation Not on file documented as of this encounter Plan of Treatment Upcoming Encounters Date Type Department Care Team (Late st Contact Info) Description 11/29/2024 10:00 AM EST Ancillary Procedure [facility] [address] [phone] documented as of this encounter Procedures Procedure Name Priority Date/Time Associated Diagnosis Comments VAS US DUPLEX CAROTID BILATERAL Routine 11/11/2024 9:48 AM EST Bilateral carotid bruits documented in this encounter Results * Vascular US duplex carotid bilateral (11/11/2024 9:48 AM EST) Left CCA dist sys 115 cm/s CV VAS LAB Left CCA dist teran 46 cm/s CV VAS LAB LEFT COMMON CAROTID ARTERY MID S 111 cm/s CV VAS LAB LEFT COMMON CAROTID ARTERY MID D 44 cm/s CV VAS LAB Left CCA prox sys 113 cm/s CV VAS LAB Left CCA prox teran 37 cm/s CV VAS LAB Left ICA dist sys 107 cm/s CV VAS LAB Left ICA dist teran 45 cm/s CV VAS LAB Left ICA mid sys 127 cm/s CV VAS LAB Left ICA mid teran 54 cm/s CV VAS LAB Left ICA prox sys 161 cm/s CV VAS LAB Left ICA prox teran 53 cm/s CV VAS LAB Left ECA sys 70 cm/s CV VAS LAB Left Prox Subclavian PSV 121 cm/s CV VAS LAB Left vertebral sys 60 cm/s CV VAS LAB Right cca dist sys 93 cm/s CV VAS LAB Right CCA dist teran 35 cm/s CV VAS LAB RIGHT COMMON CAROTID ARTERY MID S 93 cm/s CV VAS LAB RIGHT COMMON CAROTID ARTERY MID D 38 cm/s CV VAS LAB Right CCA prox sys 77 cm/s CV VAS LAB Right CCA prox teran 34 cm/s CV VAS LAB Right ICA dist sys 112 cm/s CV VAS LAB Right ICA dist teran 56 cm/s CV VAS LAB Right ICA mid sys 119 cm/s CV VAS LAB Right ICA mid teran 41 cm/s CV VAS LAB Right ICA prox sys 131 cm/s CV VAS LAB Right ICA prox teran 40 cm/s CV VAS LAB Right eca sys 76 cm/s CV VAS LAB RIGHT EXTERNAL CAROTID ARTERY D 15 cm/s CV VAS LAB Right Prox Subclavian PSV 150 cm/s CV VAS LAB Right vertebral sys 52 cm/s CV VAS LAB Anatomical Region Laterality Modality Vascular, Abdomen Ultrasound Narrative 11/13/2024 8:43 PM EST Right Mild plaque in right internal carotid artery with no significant stenosis. Normal flow velocities and waveforms in right subclavian artery and right vertebral artery. Left Mild plaques in left internal carotid artery with less than 50% stenosis. Left internal carotid artery is tortuous. Normal flow velocities and waveforms in left subclavian artery and left vertebral artery. Right Carotid The CCA has mild heterogeneous plaque. The ICA has mild heterogeneous plaque. The ECA has mild heterogeneous plaque. Vertebral flow is antegrade. Left Carotid The CCA has mild heterogeneous plaque. The ICA has mild heterogeneous plaque. The ECA has mild heterogeneous plaque. Vertebral flow is antegrade. School Photographs Detailer Details A hampton scale, color and doppler analysis ultrasound was performed. During the study longitudinal and transverse views were obtained. Pulsed wave doppler was performed. us Beau Nails MD CV VASCULAR PROCEDURES Final R esult documented in this encounter Visit Diagnoses Diagnosis Bilateral carotid bruits documented in this encounter
--- OUTSIDE RECORDS SUMMARY | 2024-11-17 11:45 | XMS_ITS | Encounter Summary ---
Author Organization [facility] Address [address] [place] [address] Care Team Providers Care Medical Examiner Name Role Phone Unavailable Primary Care Provider Unavailabl e Reason for Referral * Imaging (Routine) - Closed Specialty Diagnoses / Procedures Referred By Bernice palacios Referred To Contact Diagnoses Bilateral carotid bruits Procedures Vascular US duplex carotid bilateral Beau Nails MD [address] [place] [id number] Phone: tel: fax: [facility] Referral ID Status Reason Start Date Expiration Date Visits Re quested Visits Authorized [id number] Closed 11/07/2024 11/07/2025 1 1 * Cardiac Stress Testing (Routine) - Pending Review Specialty Diagnoses / Procedures Referred By Bernice t Referred To Contact Cardiology Diagnoses Coronary artery calcification Stable angina pectoris (CMS/HCC) Dyspnea on exertion Procedures Nuclear stress test with myocardial perfusion LA MYOCARDIAL PERFUSION IMAGING TOMOGRAPHIC MULTI STUDIES AT REST OR STRESS LA MYOCARDIAL PERFUSION IMAGING TOMOGRAPHIC SINGLE STUDY AT REST OR STRESS LA CARDIOVASCULAR STRESS TEST GLOBAL LA CV TMST/BIKE MAX/SUBMAX CONTINUOUS ECG MON/PHARM STRESS SUPVSR ONLY LA CV STRESS TEST/BIKE CONT ECG MON/PHARM STRESS INTERP & REPORT ONLY LA TEST STRESS CARDIOVASCULAR TRACING ONLY Beau Nails MD [address] [place] [address],[address] [address] Phone: tel: fax: [facility] Referral ID Status Reason Start Date Expiration Date V isits Requested Visits Authorized [id number] Pending Review 11/07/2024 11/07/2025 3 3 Reason for Visit * Reason Comments Initial Visit Encounter Details Date Type Department Care Team (Late st Contact Info) Description 11/07/2024 1:30 PM EST Office Visit [facility] Cardiology [address] [place] [id number] Beau Nails MD [address] [place] [address] [address] [place] [address] Primary hypertension (Primary Dx); Pure hypercholesterolemia; Coronary artery calcification; PAD (peripheral artery disease) (CMS/HCC); Raynaud's phenomenon without gangrene; Stable angina pectoris (CMS/HCC); Dyspnea on exertion; Bilateral carotid bruits Social History Tobacco Use Types Packs/Day Years Used Date Smoking Tobacco: Every Day Cigarettes Smokeless Tobacco: Never Tobacco Cessation:Ready to Q uit: Not Asked; Counseling Given: Not Answered Comments:3 cigarettes per day Alcohol Use Standard Drinks/Week Comments Not Currently 0 (1 standard drink = 0.6 oz pur e alcohol) Comments Unknown Sex and Gender Information Value Date Recorded Sex Assigned at Not on file Legal Sex Female 2:17 PM EST Gender Identity Not on file Sexual Orientation Not on file documented as of this encounter Last Filed Vital Signs Vital Sign Reading Time Taken Comments Blood Pressure 136/86 11/07/2024 1:09 PM EST Pulse 74 11/07/2024 1:09 PM EST Temperature - - Respiratory Rate - - Oxygen Saturation 97% 11/07/2024 1:09 PM EST Inhaled Oxygen Concentration - - Weight 43.7 kg (96 lb 6.4 oz) 11/07/2024 1:09 PM EST Height 160 cm (5' 3 ) 11/07/2024 1:09 PM EST Body Mass Index 17.08 11/07/2024 1:09 PM EST documented in this encounter Progress Notes * Beau Nails MD - 11/07/2024 1:30 PM ESTAssociated Problem(s): HTN (hypertension) * Beau Nails MD - 11/07/2024 1:30 PM ESTAssociated Problem(s): HLD (hyperlipidemia) * Beau Nails MD - 11/07/2024 1:30 PM ESTAssociated Problem(s): Coronary artery calcification Orders: Nuclear stress test with myocardial perfusion; Future * Beau Nails MD - 11/07/2024 1:30 PM ESTAssociated Problem(s): PAD (peripheral artery disease) ([facility]) * Beau Nails MD - 11/07/2024 1:30 PM ESTAssociated Problem(s): Raynaud's phenomenon without gangrene * Beau Nails MD - 11/07/2024 1:30 PM EST CONSULTATION REQUESTED BY: Nikki Jordan: Thank you for requesting cardiology consultation on your patient, Susan Calderon. History of Present Illness The patient is a pleasant 64-year-old [place]-speaking woman with a history of systemic hypertension, hyperlipidemia, chronic active tobacco use, and documented peripheral arterial disease. She has been found to have coronary artery calcification as an incidental finding on a scan. She has had inter mittent chest pain. She is now referred for cardiac evaluation. She is interviewed with an interpreter translator. She was referred by her primary care physician due to experiencing significant fatigue at work, coupled with substernal pressure and dyspnea. These symptoms have been present for approximately 4 months. The chest pain, described as central pressure, radiates to her back and is not associated with rest. She reports episodes of choking and chest pain during physical exertion, such as climbing stairs or lifting objects, necessitating a reduction in pace and subsequent rest. The pain is accompaniedby shortness of breath, which resolves within 2 to 3 minutes of stopping the activity. Over the past month, she has reduced her workload due to these symptoms. She does not experience any pain while sitting or doing nothing. She has a known history of hypertension, managed with losartan, but does not have diabetes. She is currently attempting to quit smoking, having reduced her intake to 3 cigarettes per day froma previous maximum of 2 packs per day. She also reports circulatory issues in her legs, particularly during winter when her toes and fingers turn black. She does not experience calf or thigh pain during ambulation. Approximately 4 years ago, she was diagnosed with venous insufficiency in her lower extremities. She does not see a local vascular surgeon. SOCIAL HISTORY The patient is smoking 3 cigarettes a day and is decreasing the amount in order to quit smoking. MEDICATIONS Current: Losartan, atorvastatin. ACTIVE MEDICATIONS: Outpatient Medications Prior to Visit Medication Sig Dispense Refill albuterol HFA (PROAIR HFA ; PROVENTIL HFA ; VENTOLIN HFA) 90 mcg/actuation inhaler Inhale 2 puffs by mouth every 6 (six) hours if needed for wheezing. aspirin 81 mg chewable tablet Chew 1 tablet (81 mg total) 1 (one) time each day. atorvastatin (LIPITOR) 20 mg tablet Take 1 tablet (20 mg total) by mouth daily. blood pressure monitor kit 1 Device by Not Applicable route daily. calcium carbonate/vitamin D3 (CALCIUM 600 + D,3, ORAL) Take 1 tablet by mouth 1 (one) time each day. hydroCHLOROthiazide 12.5 mg tablet Take 1 tablet (12.5 mg total) by mouth 1 (one) time each day. losartan-hydroCHLOROthiazide (HYZAAR) 100-12.5 mg per tablet Take 1 tablet by mouth 1 (one) time each day. umeclidinium (Incruse Ellipta) 62.5 mcg/actuation inhalation Inhale 1 puff by mouth 1 (one) time each day if needed (when coughing alot or trouble breathing). No facility-administered medications prior to visit. PAST MEDICAL HISTORY: Patient Active Problem List Diagnosis Date Noted Date Diagnosed HTN (hypertension) 08/22/2024 HLD (hyperlipidemia) 08/22/2024 Coronary artery calcification 08/22/2024 SEVERE PAD (peripheral artery disease) (CMS/HCC) 08/22/2024 Raynaud's phenomenon without gangrene 08/22/2024 Resolved Problems No resolved problems to display. ALLERGIES: @ALL@ FAMILY HISTORY: No family history on file. SOCIAL HISTORY: Social History Tobacco Use Smoking status: Every Day Types: Cigarettes Smokeless tobacco: Never Tobacco comments: 3 cigarettes per day Substance Use Topics Alcohol use: Not Currently ROS: GENERAL: No weakness, fatigue, significant weight change, fevers, chills or sweats. HEENT: No headaches, changed vision, or hearing, nosebleeds, infected/bleeding gums or dental abscesses. RESPIRATORY: No wheezing, cough, sputum, hemoptysis, loud snoring, excessive sleepiness, or lack ofrefreshing sleep. CARDIOVASCULAR: See above. GI: No nausea, vomiting, loss of appetite, loss of sense of taste, hematochezia, melena, abdominal pain, or heartburn. : No stones, dysuria/UTI, hematuria, frequency. MUSCULOSKELETAL/EXTREMITIES: No joint pain or swelling, exertional leg cramps, leg vein abnormalities. PSYCH: No depression NEURO: No seizures, sensory or motor function loss, difficulty speaking, or memory problems. ENDOCRINE: No excessive thirst, cold or heat intolerance. HEME: No anemia, prolonged bleeding or easy bruising. ALLERGIES: Meds as above. No environmental allergies. All systems reviewed and otherwise negative. PHYSICAL EXAM: Vitals: 11/07/24 1309 BP: 136/86 BP Location: Right arm Patient Position: Sitting BP Cuff Size: Adult Pulse: 74 SpO2: 97% Weight: (!) 43.7 kg (96 lb 6.4 oz) Height: 1.6 m (63 ) APPEARANCE: WDWN 64 y.o. year old female in no acute distress. HEENT: Within broad limits of normal. NECK: no JVD, carotids 2+ bilateral bruits, louder on left. CHEST: clear without wheezes, rales, rhonchi or dullness. Normal excursions and effort. HEART: RRR with normal S1 and S2, 1-2/6 KAUSHIK RUSB, no diast murmurs, no gallops or rub, no change with change of position. ABDOMEN:, soft, non-tender, without organomegaly or palpable masses, no palpable aorta, no renal bruits. Bowel sounds normoactive. EXTREMITIES: without clubbing, cyanosis, or edema; peripheral pulses are 1+ including dorsalis pedis and posterior tibialis bilaterally. NEURO: Non focal. SKIN: .No ulcers or xanthomata. EKG: COMB CAPPER TESTING: LDL 106 on atorvastatin 20 mg/dl ASSESSMENT/PLAN: Assessment & Plan 1. Chest discomfort. She reports experiencing chest pain and pressure, particularly during physical exertion such as climbing stairs while lifting objects. These symptoms have been present for about 4 months. The pain isdescribed as central chest pressure that does radiate to the back. It is associated with shortness of breath that resolves within 2-3 minutes after stopping the activity and drinking cold water. Given her history of coronary artery calcification and the presence of cholesterol plaque in the coronary arteries, there is a concern for potential heart artery blockage. A nuclear exercise stress test using a treadmill will be arranged to evaluate her heart's circulation during physical activity. 2. Hyperlipidemia. Her LDL cholesterol level is currently 106, which is above the target of less than 70. She is already on atorvastatin. The dosage of atorvastatin will be increased to 80 mg/dl to help lower her LDL levels further. 3. Carotid artery bruit. A bruit was detected in her neck, suggesting the presence of cholesterol plaque in the carotid artery. An ultrasound of the neck will be recommended to assess the extent of the plaque. 4. Hypertension. She has a history of high blood pressure and is currently on losartan. 5. Peripheral arterial disease. She reports a history of peripheral arterial disease, including issues with circulation to her legsand toes, especially during winter. She was previously evaluated in [place] 4 years ago. She appearsto have Raynaud's as well as PVD. 6. Tobacco use. She reports smoking 3 cigarettes a day and is attempting to quit. Assessment & Plan Primary hypertension Pure hypercholesterolemia Coronary artery calcification Orders: Nuclear stress test with myocardial perfusion; Future PAD (peripheral artery disease) (CMS/HCC) Raynaud's phenomenon without gangrene Stable angina pectoris (CMS/HCC) Orders: Nuclear stress test with myocardial perfusion; Future Dyspnea on exertion Orders: Nuclear stress test with myocardial perfusion; Future Bilateral carotid bruits Orders: Vascular US duplex carotid bilateral; Future I have obtained verbal consent from Susan Calderon prior to the recording. I have advised Susan Calderon that she may refuse the recording and require the recording to be turned off at any time during this encounter. The [facility] team will continue to co-manage this patient following the plan of care as established by my initial visit and as per AHA guidelines for ongoing management and surveillance of 1. Primary hypertension 2. Pure hypercholesterolemia 3. Coronary artery calcification 4. PAD (peripheral artery disease) (CMS/HCC) 5. Raynaud's phenomenon without gangrene 6. Stable angina pectoris (CMS/HCC) 7. Dyspnea on exertion 8. Bilateral carotid bruits This will include medication titration, initiation of appropriate medications and further titration, and diagnostic studies to manage this disease process. Thank you for requesting cardiology consultation on this interesting patient. Sincerely, Beau Nails M.D. documented in this encounter Plan of Treatment Upcoming Encounters Date Type Department Care Team (Late st Contact Info) Description 11/29/2024 10:00 AM EST Ancillary Procedure [facility] [address] [place] [address] Scheduled Orders Name Type Priority Associated Diagnoses Order Schedule Nuclear stress test with myocardial perfusion Cardiac Nuclear Medicine Routine Coronary artery calcification Stable angina pectoris (CMS/HCC) Dyspnea on exertion 1 Occurrences starting 11/07/2024 until 11/07/2025 documented as of this encounter Results * Vascular US duplex [...] mild heterogeneous plaque. Vertebral flow is antegrade. Travel Insurance Agent Details A hampton scale, color and doppler analysis ultrasound was performed. During the study longitudinal and transverse views were obtained. Pulsed wave doppler was performed. us Beau Nails MD CV VASCULAR PROCEDURES Final R esult documented in this encounter Visit Diagnoses Diagnosis Primary hypertension- Primary Unspecified essential hypertension Pure hypercholesterolemia Coronary artery calcification PAD (peripheral artery disease) (CMS/HCC) Unspecified peripheral vascular disease Raynaud's phenomenon without gangrene Stable angina pectoris (CMS/HCC) Dyspnea on exertion Other dyspnea and respiratory abnormality Bilateral carotid bruits Bilateral carotid bruits documented in this encounter Discontinued Medications Medication Sig Discontinue Reason Start Date End Da te blood pressure monitor kit 1 Device by Not Applicable route daily. Therapy completed 11/20/2023 11/07/2024 documented as of this encounter Historical Medications * This list may reflect changes made after this encounter. albuterol HFA (PROAIR HFA ; PROVENTIL HFA ; VENTOLIN HFA) 90 mcg/actuation inhaler Inhale 2 puffs by mouth every 6 (six) hours if needed for wheezing. umeclidinium (Incruse Ellipta) 62.5 mcg/actuation inhalation Inhale 1 puff by mouth 1 (one) time each day if needed (when coughing alot or trouble breathing). losartan-hydroCH LOROthiazide (HYZAAR) 100-12.5 mg per tablet Take 1 tablet by mouth 1 (one) time each day. aspirin 81 mg chewable tablet Chew 1 tablet (81 mg total) 1 (one) time each day. hydroCHLOROthiaz eliud 12.5 mg tablet Take 1 tablet (12.5 mg total) by mouth 1 (one) time each day. calcium carbonate/vitami n D3 (CALCIUM 600 + D,3, ORAL) Take 1 tablet by mouth 1 (one) time each day. atorvastatin (LIPITOR) 20 mg tablet Take 1 tablet (20 mg total) by mouth daily. 06/20/2024 blood pressure monitor kit 1 Device by Not Applicable route daily. 11/20/2023 added in this encounter
--- OUTSIDE RECORDS SUMMARY | 2024-11-17 11:45 | XMS_ITS | Clinical Summary ---
Author Organization [facility] Health: [facility] Address [address] [address] Phone Care Team Providers Care Dispatcher Tow Truck Name Role Phone Unavailable Primary Care Provider Unavailabl e Allergies No known active allergies Medications atorvastatin (LIPITOR) 20 mg tablet Take 1 tablet (20 mg total) by mouth daily. 4 Active calcium carbonate/chloe min D3 (CALCIUM 600 + D,3, ORAL) Take 1 tablet by mouth 1 (one) time each day. Active hydroCHLOROthi azide 12.5 mg tablet Take 1 tablet (12.5 mg total) by mouth 1 (one) time each day. Active aspirin 81 mg chewable tablet Chew 1 tablet (81 mg total) 1 (one) time each day. Active losartan-hydro CHLOROthiazide (HYZAAR) 100-12.5 mg per tablet Take 1 tablet by mouth 1 (one) time each day. Active umeclidinium (Incruse Ellipta) 62.5 mcg/actuation inhalation Inhale 1 puff by mouth 1 (one) time each day if needed (when coughing alot or trouble breathing). Active albuterol HFA (PROAIR HFA ; PROVENTIL HFA ; VENTOLIN HFA) 90 mcg/actuation inhaler Inhale 2 puffs by mouth every 6 (six) hours if needed for wheezing. Active blood pressure monitor kit 1 Device by Not Applicable route daily. 4 11/07/19 25 Discontinu ed(Therapy completed) Active Problems Problem Noted Date Diagnosed Date HTN (hypertension) 08/22/2024 Assessment & Plan (11/07/2024 2:08 PM EST): HLD (hyperlipidemia) 08/22/2024 Assessment & Plan (11/07/2024 2:08 PM EST): Coronary artery calcification 08/22/2024 Overview (08/22/2024): SEVERE Assessment & Plan (11/07/2024 2:08 PM EST): Orders: Nuclear stress test with myocardial perfusion; Future PAD (peripheral artery disease) 08/22/2024 Assessment & Plan (11/07/2024 2:08 PM EST): Raynaud's phenomenon without gangrene 08/22/2024 Assessment & Plan (11/07/2024 2:08 PM EST): Encounters Date Type Department Care Team Description 11/11/2024 9:45 AM EST Ancillary Procedure [facility] Cardiology [facility] [address] [place] [phone] Bilateral carotid bruits 11/07/2024 1:30 PM EST Office Visit [facility] Cardiology [facility] [address] [place] [phone] Beau Nails MD Primary hypertension (Primary Dx); Pure hypercholesterolemia; Coronary artery calcification; PAD (peripheral artery disease) (CMS/HCC); Raynaud's phenomenon without gangrene; Stable angina pectoris (CMS/HCC); Dyspnea on exertion; Bilateral carotid bruits from Last 3 Months Medical History Medical History Date Comments Hypertensive retinopathy Acute insomnia Leukocytosis Scalp lesion Social History Tobacco Use Types Packs/Day Years [...] on file Sexual Orientation Not on file Obstetrics History Last Filed Vital Signs Vital Sign Reading [...] Mass Index 17.08 11/07/2024 1:09 PM EST Plan of Treatment Upcoming Encounters Date Type Department Care Team (Late st Contact Info) Description 11/29/2024 10:00 AM EST Ancillary Procedure [facility] [address] [place] [address] Health Maintenance Due Date Last Done Comments Colorectal Cancer Screening: Colonoscopy 11/15/2022 Social Influencers of Health Screening 11/15/2022 COVID-19 Vaccine (4 - 2023-2 5 season) 2024 11/20/2023, 08/25/2021, 08/04/2021 Influenza Vaccine (#1) 2024 , 09/14/2018 Depression Screening 08/13/2024 08/13/2023 Hypertension/CHF/CAD Annual BMP Blood Test 08/23/2024 Lung Cancer Screening (Low Dose CT) 10/30/2024 10/30/2023 Breast Cancer Screening 09/25/2025 09/25/2023 Cervical Cancer Screening: P ap Smear 09/17/2026 09/17/2023 DTaP,Tdap,and Td Vaccines (2 - Td or Tdap) 03/15/2028 03/15/2018 Cholesterol Screening (Lipid Panel) 03/02/2029 03/02/2024 HIV Screening Completed 08/13/2023 Hepatitis C Screening Completed 08/13/2023 Pneumococcal Vaccine: 50+ Years Completed 08/13/2023, 03/15/2018 Pneumococcal Vaccine: Pediatrics (0 to 5 Years) and At-Risk Patients (6 to 64 Years) Completed 08/13/2023, 03/15/2018 RSV Immunization Patients 60 + Years Old Completed 05/24/2024 Zoster Vaccines Completed 08/02/2024, 05/24/2024 HIB Vaccines Aged Out No longer eligi ble based on patient's age to complete this topic HPV Vaccines Aged Out No longer eligi ble based on patient's age to complete this topic Hepatitis A Vaccines Aged Out No long er eligible based on patient's age to complete this topic Hepatitis B Vaccines Aged Out No long er eligible based on patient's age to complete this topic IPV Vaccines Aged Out No longer eligi ble based on patient's age to complete this topic MMR Vaccines Aged Out No longer eligi ble based on patient's age to complete this topic Meningococcal ACWY Vaccine Aged Out N o longer eligible based on patient's age to complete this topic Meningococcal B Vacine Aged Out No lo nger eligible based on patient's age to complete this topic RSV Immunization Patients Under 20 months Aged Out No longer eligible b ased on patient's age to complete this topic Varicella Vaccines Aged Out No longer eligible based on patient's age to complete this topic Procedures Procedure Name Priority Date/Time Associated Diagnosis Comments VAS US DUPLEX CAROTID BILATERAL Routine 11/11/2024 9:48 AM EST Bilateral carotid bruits ÓSCAR SCREENING DIGITAL Routine 09/25/2023 12:24 PM EST Encounter for screening mammogram for malignant neoplasm of breast from Last 3 Months or Most Recently Relevant to Health Maintenance Results * Vascular US duplex carotid bilateral [...] mild heterogeneous plaque. Vertebral flow is antegrade. Transfer Station Operator Details A hampton scale, color and doppler analysis ultrasound was performed. During the study longitudinal and transverse views were obtained. Pulsed wave doppler was performed. us Beau Nails MD CV VASCULAR PROCEDURES Final R esult * ÓSCAR SCREENING DIGITAL (09/25/2023 12:24 PM EST) Anatomical Region Laterality Modality Mammography 09/10/2023 9:55 AM EST Narrative 09/25/2023 12:24 PM [facility] Diagnostic Imaging Department [address] [place] [id number] Patient: ??BEBE GREENWOOD ?/Age/Sex: 1960 - 63 - F Unit#: ??[id number] ? Location/Status: ??SPDIMAM/REG CLI ? Mnemonic/Ordering Site: ??DIGSC/SPMAM Ordering Physician: ??MANUEL CHAMBERLAIN MD [facility] Screening Digital - 09/10/23 - 1026 Report Status:Signed EXAM: [facility] Screening Digital EXAM DATE AND TIME: 09/10/2023 10:27 AM HISTORY: ??Screening. COMPARISON: ??No comparison imaging available. TECHNIQUE: Bilateral digital breast tomosynthesis was performed in the CC and MLO projections. Computer aided detection with Evi 3D 3.1 was employed. TISSUE DENSITY: c. The breasts are heterogeneously dense, which may obscure small masses. FINDINGS: No suspicious masses, grouped microcalcifications, or areas of architectural distortion are seen. The skin and vascularity are unremarkable. IMPRESSION: No mammographic evidence of malignancy is seen. A negative mammogram in the presence of a clinically suspicious palpable abnormality does not preclude the possibility of malignancy or alter the indications for biopsy. BI-RADS: ??Category 1: Negative RECOMMENDATION(S): 1: Routine screening mammogram BILATERAL in 1 year. Dictating Physician: ??GINA ZAVALETA MD Electronically Signed by: ??GINA ZAVALETA MD Dic Date/Time: ??09/25/23 1224 Sign date/Time: ??09/25/23 1224 Procedure Note Gina Zavaleta MD - 11/03/2023 [facility] Diagnostic Imaging Department [address] [place] [id number] Patient: GILBERT PEREZBEBE /Age/Sex: 1960 - 63 -F Unit#: [id number] [facility]Ordering Site: [facility] Ordering Physician: MANUEL CHAMBERLAIN MD [facility] Screening Digital - 09/10/23 - 1026 Report Status:Signed EXAM: [facility] Screening Digital EXAM DATE AND TIME: 09/10/2023 10:27 AM HISTORY: Screening. COMPARISON: No comparison imaging available. TECHNIQUE: Bilateral digital breast tomosynthesis was performed in the CCand MLO projections. Computer aided detection with Evi 3D 3.1was employed. TISSUE DENSITY: c. The breasts are heterogeneously dense, which mayobscure small masses. FINDINGS: No suspicious masses, grouped microcalcifications, or areas ofarchitectural distortion are seen. The skin and vascularity are unremarkable. IMPRESSION: No mammographic evidence of malignancy is seen. A negative mammogram in the presence of a clinically suspicious palpable abnormality does not preclude the possibility of malignancy or alter the indications for biopsy. BI-RADS: Category 1: Negative RECOMMENDATION(S): 1: Routine screening mammogram BILATERAL in 1 year. Dictating Physician: GINA ZAVALETA MD Electronically Signed by: GINA ZAVALETA MD Dic Date/Time: 09/25/23 1224 Sign date/Time: 09/25/23 1224 [facility] BI PROCEDURES Final Result from Last 3 Months or Most Recently Relevant to Health Maintenance Insurance MEDICAID - [place]
--- OUTSIDE RECORDS SUMMARY | 2024-11-17 11:45 | XMS_ITS | Encounter Summary ---
Author Organization [employer] Address [address] [place] [address] [address] [place] [address] Care Team Providers Care Tank House Operator Name Role Phone Nikki Palma MD Primary Care Pro vider Rahel Chin PharmD Unavailable [phone] Reason for Visit * Reason Onset Date Comments New Patient 06/24/2023 Encounter Details Date Type Department Care Team (Late st Contact Info) Description 06/24/2023 Telephone [facility] MED[facility] [address] [place], [place] [phone] Iglesia Carrillo MD [address] [place] [phone] New Patient Social History Tobacco Use Types Packs/Day Years Used Date Smoking Tobacco: Never Assessed Comments Unknown Sex and Gender Information Value Date Recorded Sex Assigned at Female 06/24/2023 3:58 PM EDT Legal Sex Female 4:24 PM EDT Gender Identity Female 07/25/2022 4:24 PM EDT Sexual Orientation Straight 08/13/2023 10 :55 AM EST documented as of this encounter Miscellaneous Notes * Telephone Encounter - Alicia Parson - 06/24/2023 4:00 PM EDT PAR Alicia Zhang called pt to Offer GENERAL LITHOGRAPHIC WORKER appt. Pt demographics and insurance information were verified. Pt reports the following medical conditions: Foot Condition Pt is currently taking medication:no Pt given GENERAL LITHOGRAPHIC WORKER appt with Dr. Dunbar on 08/13/2023 @ 10:15 am Pt will be sent appt reminder card and medical release form and agrees to complete and to return to medical records prior to GENERAL LITHOGRAPHIC WORKER appt. documented in this encounter Plan of Treatment Not on file documented as of this encounter Visit Diagnoses Not on filedocumented in this encounter Care Teams Tank House Operator Relationship Specialty Start Date End Date Nikki Palma MD [address] [place] [address] [phone] PCP - General Internal Medicine 08/13/23 Rahel Chin PharmD [address] [place] [address] [phone] Pharmacist Internal Medicine 12/10/23 documented as of this encounter
--- OUTSIDE RECORDS SUMMARY | 2024-11-17 11:45 | XMS_ITS | Clinical Summary ---
Author Organization [employer] Address [address] [facility] [address] [place] [address] Care Team Providers Care Icd 9 Coder Name Role Phone Nikki Palma MD Primary Care Pro vider Rahel Chin PharmD Unavailable [phone] Allergies No known active allergies Medications melatonin 5 MG tablet Take 1 tablet (5 mg) by mouth if needed at bedtime (insomnia). 90 tablet 4 Active nicotine (Nicoderm, Step 2) 14 MG/24HR patchIndications :Nicotine Dependence Place 1 patch on the skin 1 (one) time each day at the same time. 42 patch 4 Active Blood Pressure Monitor kit 1 Device in the morning. 1 kit 4 Active varenicline (Chantix Continuing ) 1 MG tablet Take 1 tablet (1 mg) by mouth 2 times daily. Days 1-3: 0.5 mg PO qDay, Days 4-7: 0.5 mg PO BID, Day 8 to end of treatment: 1 mg PO BID, If quitting is successful after 12 weeks, will continue another 12 weeks at 1 mg q12hr 60 tablet 2 4 Active Varenicline Tartrate, Starter, (Chantix Starting ) 0.5 MG X 11 & 1 MG X 42 tablet therapy pack Take 1 Box by mouth Once per day. Days 1-3: 0.5 mg PO qDay, Days 4-7: 0.5 mg PO BID, Day 8 to end of treatment: 1 mg PO BID, If quitting is successful after 12 weeks, will continue another 12 weeks at 1 mg q12hr 1 each 4 Active aspirin 81 MG chewable tabletIndication s:Annual physical exam Chew 1 tablet (81 mg) Once per day. 90 tablet 4 02/03/20 25 Active albuterol 108 (90 Base) MCG/ACT inhalerIndicatio ns:Annual physical exam Inhale 2 puffs every 6 (six) hours if needed for wheezing. 18 g 3 4 02/03/20 25 Active Umeclidinium Salley 62.5 MCG/ACT aerosol powderIndication s:Chronic bronchitis, unspecified chronic bronchitis type (CMS/HCC) Inhale 1 Inhalation Once per day. 1 each 2 4 02/03/20 25 Active Calcium Carb-Cholecalcif vicki (Calcium 600+D) 600-20 MG-MCG tablet Take 1 tablet by mouth Once per day. 90 tablet 1 4 03/08/20 25 Active atorvastatin (Lipitor) 20 MG tablet TAKE 1 TABLET(20 MG) BY MOUTH DAILY 90 tablet 4 Active losartan-hydroCH LOROthiazide (Hyzaar) 100-12.5 MG tablet TAKE 1 TABLET BY MOUTH DAILY 90 tablet 1 4 Active Active Problems Problem Noted Date Diagnosed Date Hypertensive retinopathy 11/21/2023 Microalbuminuria 11/21/2023 COPD (chronic obstructive pulmonary disease) Lesion of lung 11/21/2023 Coronary artery calcification 11/21/2023 Leukocytosis 11/20/2023 Scalp lesion 08/14/2023 Underweight 08/14/2023 Insomnia 08/14/2023 Tobacco use disorder 08/14/2023 Overview (12/07/2023): Pharmacotherapy (updated 11/03/2023) - Nicotine 14mg/24hr patch - Use one patch daily - Nicotine 4mg gum - Chew 1 piece as needed for cravings History (Updated 12/07/2023) - Smoking since age 15 about 1PPD until about 2021 and has cut down to 1/2 PPD - Was able to remain tobacco free while - Notes stress and family problems as a trigger. Also stays tobacco free during work hours - Making great progress; down to 5 cig/ daily. - Noticed triggers present when patch falls off. Notices after long day of work. Advised to try applying patch to back or shoulder or upper arm. Assessment & Plan (12/07/2023 1:27 PM EDT): Assessment: - Making progress towards tobacco free lifestyle; down to 5 cigs/ daily; mostly on days when the patch falls off - Had VINEET of hiccups with gum but was due to not parking gum. Teaching provided by SYLVIA at [facility] and VINEET has resolved Plan: - Continue with current therapy and plan until patient is able to be smoke-free - Step down in 2 months if patient is making better progress. Assessment & Plan (11/05/2023 11:29 AM EST): Assessment: - Making progress to goal of tobacco free lifestyle per USPTF Plan: - START nicotine 14mg/day patches with 4mg gum for PRN cravings - Follow-up in 1 month to track progress Health care maintenance 08/14/2023 Essential hypertension 08/07/2023 Hyperlipidemia 08/07/2023 08/07/2023 PAD (peripheral artery disease) 08/07/2023 08/07/2023 Encounters Date Type Department Care Team Description 09/30/2024 Orders Only [facility] External Provider, [facility] 09/05/2024 Telephone [facility] MEDICINE [address] [place] [phone] Gabriela Reynaga MA August08/20/2024 Refill [facility] MEDICINE [address] [place] [address] Nikki Palma MD 08/17/2024 Telephone [facility]ICINE [address] [place] [address] Claire Bravo MA chart prep from Last 3 Months Immunizations Name Administration Dates Next Due Influenza injectable quadriv alent IIV4 with preservative 09/14/2018 Influenza injectable quadrivalent preservative f ree 08/13/2023 Pfizer Covid-19 Vaccine 12+ 11/20/2023 Pneumococcal Conjugate PCV 20 08/13/2023 Pneumococcal Polysaccharide PPSV23 03/15/2018 RSV Bivalent 05/24/2024 Tdap 03/15/2018 Zoster, Recombinant 08/02/2024,05/24/2024 Family History Medical History Relation Name Comments uncpecified cancer Father DM2,HTN Mother Valvular heart disease Sister Relation Name Status Comments Father Mother Sister Social History Tobacco Use Types Packs/Day Years Used Date Smoking Tobacco: Every Day Cigarettes 0.8 49.1 Started: 1975 Passive Smoke Exposure: Current Tobacco Cessation:Ready to Q uit: Not Asked; Counseling Given: Not Answered Comments:Started smoking at 15 y of age until now,was able to stop during pregnancies. Down to 5 cigarettes daily at height was smoking 15 cigs/daily. Trigger: morning coffee Alcohol Use Standard Drinks/Week Comments Not Currently 0 (1 standard drink = 0.6 oz pur e alcohol) Depression Answer Date Recorded Patient Health Questionnaire-9 Score 6 08/13/2023 Patient Health Questionnaire-9 Score 6 08/13/2023 Last PHQ-9: Questionnaire Data Not on file 1 10/13/2022 Housing Stability Answer Date Recorded What is your housing situation today? I have analisa vance 10/08/[address] you li ve. Do you have problems with any of the following? None of the above 10/08/2023 Food Insecurity Answer Date Recorded Within the past 12 months, y ou worried that your food would run out before you got money to buy more: Never True 10/08/2023 Within the past 12 months,th e food you bought just didn't last and you didn't have enough money to get more: Never True 07/2024 Transportation Answer Date Recorded In the past 12 months, has l ack of transportation kept you from medical appts, meetings, work or from getting things needed for daily living? No 10/08/2023 Utilities Answer Date Recorded In the past 12 months, has t he electric, gas, oil or water company threatened to shut off services in your home? No 10/08/2023 Depression Answer Date Recorded Patient Health Questionnaire-2 Score 0 08/13/2023 Internet Access Answer Date Recorded Internet Access Q1 Yes 08/11/2024 Internet Access Q2 Not on file 08/11/2024 Comments No Sex and Gender Information Value Date Recorded Sex Assigned at Female 06/24/2023 3:58 PM EDT Legal Sex Female 4:24 PM EDT Gender Identity Female 07/25/2022 4:24 PM EDT Sexual Orientation Straight 08/13/2023 10 :55 AM EST Last Filed Vital Signs Vital Sign Reading Time Taken Comments Blood Pressure 126/80 06/08/2024 3:10 PM EDT Pulse 70 06/08/2024 3:10 PM EDT Temperature 36.3 ??C (97.4 ??F) 06/08/2024 3:10 PM ED T Respiratory Rate 20 06/08/2024 3:10 PM EDT Oxygen Saturation 98% 06/08/2024 3:10 PM EDT Inhaled Oxygen Concentration - - Weight 45.4 kg (100 lb) 07/25/2024 3:44 PM EDT Height 160 cm (5' 3 ) 07/25/2024 3:44 PM EDT Body Mass Index 17.71 07/25/2024 3:44 PM EDT Plan of Treatment Health Maintenance Due Date Last Done Comments CT Colonography 1960 Colonoscopy 1960 Colorectal Cancer Screening 1960 FIT DNA/Cologuard 1960 FIT 1960 FOBT 1960 Sigmoidoscopy 1960 Alcohol/Substance Use Screening 1972 Hepatitis A Vaccines (1 of 2 - Risk 2-dose series) 01/16/1979 Mammogram 2000 COVID-19 Vaccine (2023-2 5 season) 2024 11/20/2023, 08/25/2021, 08/04/2021 Influenza Vaccine (#1) 2024 , 09/14/2018 Depression Screening 08/13/2024 08/13/2023, 08/13/2023 SDOH Screening 10/08/2024 10/08/2023 Lung Cancer Screening 10/30/2024 10/30/2023 Tobacco Screening 06/08/2025 06/08/2024 Pap Smear 09/17/2026 09/17/2023 DTaP/Tdap/Td Vaccines (2 - T d or Tdap) 03/15/2028 03/15/2018 Cervical Cancer Screening 09/17/2028 HPV/Cotest 09/17/2028 09/17/2023 Lipid Panel 03/02/2029 03/02/2024, 08/13/2023 HIV Screening Completed 08/13/2023 Hepatitis C Screening Completed 08/13/2023 Pneumococcal Vaccine: 50+ Years Completed 08/13/2023, 03/15/2018 RSV Patients and Patients Aged 60 years or older Completed 05/24/2024 Zoster Vaccines Completed 08/02/2024, 05/24/2024 [...] patient's age to complete this topic Meningococcal Vaccine Aged Out No clifton aryan eligible based on patient's age to complete this topic RSV under 20 months Aged Out No longe r eligible based on patient's age to complete this topic Rotavirus Vaccines Aged Out No longer eligible based on patient's age to complete this topic Goals Goal Patient Goal Type Associated Problems Recent Progress Patient-Stated? Author Help patient stop using tobacco General Tobacco use disorder On track(11/05/19 11:29 AM EST) No Rahel Chin PharmD Procedures Procedure Name Priority Date/Time Associated Diagnosis Comments CT CHEST WO CONTRAST Routine 10/03/2024 11:25 AM EST LIPID PANEL, STANDARD Routine 03/02/2024 8:37 AM EDT Hypertensive retinopathy of both eyes LDCT LUNG SCREENING Routine 10/30/2023 1 0:23 AM EST HPV MRNA E6/E7 REFLEX TO HPV 16, 18/45 Routine 09/17/2023 1:15 PM EST PAP SMEAR Routine 09/17/2023 1:15 PM EST Cervical cancer screening HEPATITIS C AB W/REFL TO HCV RNA, QN, PCR Routine 08/13/2023 11:45 AM EST Annual physical exam HIV 1/2 ANTIGEN/ANTIBODY, FOURTH GENERATION W/RFL Routine 08/13/2023 11:45 AM EST Annual physical exam from Last 3 Months or Most Recently Relevant to Health Maintenance Results * CT Chest w/o Contrast (10/03/2024 11:25 AM EST) Anatomical Region Laterality Modality Body, Chest Computed Tomogra phy 10/03/2024 11:2 5 AM EST Narrative 10/03/2024 11:26 AM EST ? [facility] ?[address] ?[place] [address] ? CT Scan Report ? Signed ? Patient: Cedres Yumiko,Susan ?MR#: ?? [id number] ? : 1960 ?Acct:[id number] ? Age/Sex: 64 / F ?ADM Date: 09/30/24 ? Loc: HO.CT ? Attending Dr: Juancarlos Albarado MD ? Ordering Physician: Juancarlos Albarado MD ?? Date of Service: 09/30/24 ?? Procedure(s): CT chest wo IV con ?? Accession Number(s): [id number] ? cc: Juancarlos Albarado MD; Nikki Palma MD ? Report Number: ?? [id number]: Total DLP = ?? 78.00 mGy-cm ? CLINICAL HISTORY: R91.8 - Other nonspecific abnormal finding of lung field ? CT chest without contrast ? Comparison: CT/CA/SR - CT CHEST WO IV CON - 05/23/24 17:11 EDT ?? CT/CA/SR - CT LUNG SCREENING - 10/30/23 10:02 EST ? Findings: ?? Ill-defined irregularly marginated cystic/cavitary lesion in the central ?? right lower lobe currently measuring approximate 26 x 37 x 28 mm. ?? Similar measurements obtained on prior although more recent CT degraded by ?? motion artifact. Irregular wall thickening without large soft tissue ?? component. Still appearance remains concerning for potential neoplasm. If ?? not previously performed, PET-CT fusion scan and/or histologic evaluation ?? suggested. ? A nearby 7 x 5 mm nodule current image 34 series 4 not appreciably ?? changed. Previously described 3 mm right upper lobe nodule current image ?? 10 series 4 stable. A 1.2 cm perivascular spiculated nodule left upper ?? lobe is less apparent currently now measuring approximately 6 mm. ?? 4 mm nodule superior segment left lower lobe current image 32, stable to ?? priors, as is a minimal linear density in the anterior superior segment ?? left lower lobe image 31. ? No clearly new nodule evident. Scattered cysts left lung without ?? suspicious appearance. Similar generalized emphysematous changes. No ?? consolidation or pleural effusion. No pneumothorax. ?? Thoracic inlet intact. No thyroid nodules. No enlarged mediastinal or ?? hilar lymph nodes. Heart size normal. No pericardial effusion. Extensive ?? coronary artery calcification. ?? Esophagus within normal limits. No hiatal hernia. No acute process evident ?? upper abdomen. ?? No acute or aggressive appearing bone lesion. ? IMPRESSION: ?? Overall similar appearance to concerning multicystic lesion in the central ?? right lower lobe. If not previously performed, PET-CT fusion scan and/or ?? histologic evaluation suggested. Otherwise continued close CT follow-up ?? suggested. ?? Additional small bilateral pulmonary nodules also stable. ?? Stable emphysematous changes ? This document has been electronically signed by: Cam King MD on ?? 10/03/2024 11:25:24 ? Dictated By: ?Cam King MD ? Signed By: ?<Electronically signed by Cam King MD in OV> ? 10/03/24 1126 ? DD/ 1125 ? TD/TT: 10/03/24 1125 ? Switch Maker: ? Procedure Note Liliana, Laine - 10/03/[address] [place] [address] [address] Scan Report Signed Patient: Karen Greenwood#: [id number] : 1960Acct:[id number] Age/Sex: 64 / FADM Date: 09/30/24 Loc: HO.CT Attending Dr: Juancarlos Albarado MD Ordering Physician: Juancarlos Albarado MD Date of Service: 09/30/24 Procedure(s): CT chest wo IV con Accession Number(s): [id number] cc: Juancarlos Albarado MD; Nikki Palma MD Report Number: [id number]: Total DLP = 78.00 mGy-cm CLINICAL HISTORY: R91.8 - Other nonspecific abnormal finding of lung field CT chest without contrast Comparison: CT/CA/SR - CT CHEST WO IV CON - 05/23/24 17:[address]/CA/SR - CT LUNG SCREENING - 10/30/23 10:02 EST Findings: Ill-defined irregularly marginated cystic/cavitary lesion in the central right lower lobe currently measuring approximate 26 x 37 x 28 mm. Similar measurements obtained on prior although more recent CT degraded by motion artifact. Irregular wall thickening without large soft tissue component. Still appearance remains concerning for potential neoplasm. If not previously performed, PET-CT fusion scan and/or histologic evaluation suggested. A nearby 7 x 5 mm nodule current image 34 series 4 not appreciably changed. Previously described 3 mm right upper lobe nodule current image 10 series 4 stable. A 1.2 cm perivascular spiculated nodule left upper lobe is less apparent currently now measuring approximately 6 mm. 4 mm nodule superior segment left lower lobe current image 32, stable to priors, as is a minimal linear density in the anterior superior segment left lower lobe image 31. No clearly new nodule evident. Scattered cysts left lung without suspicious appearance. Similar generalized emphysematous changes. No consolidation or pleural effusion. No pneumothorax. Thoracic inlet intact. No thyroid nodules. No enlarged mediastinal or hilar lymph nodes. Heart size normal. No pericardial effusion. Extensive coronary artery calcification. Esophagus within normal limits. No hiatal hernia. No acute process evident upper abdomen. No acute or aggressive appearing bone lesion. IMPRESSION: Overall similar appearance to concerning multicystic lesion in the central right lower lobe. If not previously performed, PET-CT fusion scan and/or histologic evaluation suggested. Otherwise continued close CT follow-up suggested. Additional small bilateral pulmonary nodules also stable. Stable emphysematous changes This document has been electronically signed by: Cam King MD on 10/03/2024 11:25:24 Dictated By: Cam King MD Signed By: <Electronically signed by Cam King MD in OV> 10/03/24 1126 DD/ 1125 TD/TT: 10/03/24 1125 Switch Maker: [facility] External Provider IMG CT PROCEDURES Edited Result - Final * (ABNORMAL) Lipid Panel, Standard (03/02/2024 8:37 AM EDT) Triglycerides 134 <150 mg/dL [facility] Comment:Desirable Triglyceri de: less than 150 mg/dLBorderline High Triglyceride 150-199 mg/dLHigh Triglyceride: 200-499 mg/dLVery High Triglyceride: greater than or equal to 5OO mg/dL Cholesterol 181 <200 mg/dL [facility] Comment:Desirable Cholestero l: less than 200 mg/dLBorderline High Cholesterol: 200-239 mg/dLHigh Cholesterol: greater than 239 mg/dL LDL Cholesterol Calculated 102(H) <100 mg/dL [facility] Comment:Desirable LDL: less than 100 mg/dLNear Optimal/Above Optimal LDL: 110- 129 mg/dLBorderline High LDL: 130-159 mg/dLHigh LDL: 160-189 mg/dLVery High LDL: greater than or equal to 190 mg/dL HDL Cholesterol 53 >40 mg/dL [facility] Comment:Desirable HDL: great er than 40 mg/dL Note: This HDL assay may give artificially low results in patients with liver disease. Blood Venous blood specimen / Unknown 03/02/2024 8:37 AM EDT 03/02/2024 12:04 PM EDT Nikki Pascal MD LAB BLOOD ORDERAB LES Final Result [facility] [address] [place] [phone] * CT Lung Screening Low dose (10/30/2023 10:23 AM EST) Anatomical Region Laterality Modality Lung Computed Tomogra phy 10/30/2023 10:2 3 AM EST Narrative 11/03/2023 12:25 PM EST ? [facility] ?[address] ?[place] [address] ? CT Scan Report ? Signed with Addenda ? Patient: Cedres Yumiko,Susan ?MR#: ?? [id number] ? : 1960 ?Acct:[id number] ? Age/Sex: 63 / F ?ADM Date: 02/02/24 ? Loc: HO.CT ? Attending Dr: Chyna Zhu DIRECTOR CAMP ? Ordering Physician: Chyna Zhu DIRECTOR CAMP ?? Date of Service: 10/30/23 ?? Procedure(s): CT lung screening ?? Accession Number(s): [id number] ? cc: Nikki Palma MD; Chyna Zhu DIRECTOR CAMP ?ADDENDUM ?? Addendum: ? Results confirmed with Chyna Chaney, nurse practitioner in referring ?? physician's office by PSA service on 11/03 at 2:42 PM. ? Addendum Dictated By: ?Tia Astorga MD ? Addendum Signed By: ? <Electronically signed by Tia Astorga MD in OV> ?11/03/23 1455 ?? Addendum Cosigned By: ? DD/ /21/955 ? TD/TT: / ? EXAMINATION: ?? CT CHEST SCREENING ? CLINICAL INFORMATION: ?? Current smoker with 48 pack year history ? COMPARISON: ?? None available. ? TECHNIQUE: ?? Multidetector volumetric CT imaging of the chest is performed without ?? contrast using low dose technique. Additional 2D coronal and sagittal ?? reformatted images and axial 3D maximum intensity projection (MIP) ?? images are generated on the CT workstation. ? This CT examination was performed using dose optimization techniques as ?? appropriate, variously including the following: ?? *Automated exposure control ?? *Adjustment of mA and/or kV according to patient size (this includes ?? techniques or standardized protocols for targeted exams where dose is ?? matched to indication/reason for exam; i.e. extremities or head) ?? *Use of iterative reconstruction technique ? DLP: ? 34 mGy-cm ? FINDINGS: ? BAIL BONDSMAN: Hyperinflation ? LUNGS: Trachea and bronchi are patent. Centrilobular emphysema. ?? 1.2 cm ill-defined, perivascular spiculated density left upper lobe, ?? 5:181, coronal 7:40. ?? 2.4 x 2.3 x 2.5 cm irregular multiloculated peribronchial ?? cystic/cavitary process without significant wall thickening, axial ?? 5:314, coronal 7:41. ?? 5 mm part solid nodule, 5:293. ?? 3 mm RUL nodule, 5:87. ?? Scattered 2 mm nodules. ? MEDIASTINUM: Unremarkable thyroid. No pathologic lymphadenopathy. ?? Nonenlarged heart. No pericardial effusion. ?? Nonenlarged aorta with atherosclerotic calcifications. Nonenlarged ?? pulmonary arteries. ? CORONARY ARTERY CALCIFICATION: Severe. ? PLEURA: There is no pleural effusion. No pleural mass or thickening. ? AXILLA: No lymphadenopathy. ? UPPER ABDOMEN: Unremarkable ? OSSEOUS STRUCTURES: No suspicious osseous lesions. ? CT/CT lung screening ?? IMPRESSION: ?? 1.2 cm left upper lobe spiculated irregular opacity. ?? 2.5 cm multiloculated cystic/cavitary peribronchial process right lower ?? lobe. ? ASSESSMENT: ? Lung-RADS category 4X: ??Suspicious ? RECOMMENDATION: ?? PET/CT and/or tissue sampling depending on probability of malignancy ?? and comorbidities. ?? One month LDCT may be recommended to address potentially infectious or ?? inflammatory conditions. ? Dictated By: ?Tia Astorga MD ? Signed By: ?<Electronically signed by Tia Astorga MD in OV> ?11/03/23 1221 ? DD/ 1023 ? TD/TT: ? Switch Maker: ? Procedure Note Donmoniqueter, Image - 11/03/[address] [place] [address] [address] Scan Report Signed with Jj Patient: Karen Greenwood#: [id number] : 1960Acct:[id number] Age/Sex: 63 / FADM Date: 10/30/23 Loc: HO.CT Attending Dr: Chyna Zhu NP Ordering Physician: Chyna Zhu NP Date of Service: 10/30/23 Procedure(s): CT lung screening Accession Number(s): [id number] cc: Nikki Palma MD; Chyna Zhu NP ADDENDUM Addendum: Results confirmed with Chyna Chaney nurse practitioner in referring physician's office by PSA service on 11/03 at 2:42 PM. Addendum Dictated By: Tia Astorga MD Addendum Signed By: <Electronically signed by MD Ale in OV> 11/03/23 1455 Addendum Cosigned By: DD/ /21/955 TD/TT: / EXAMINATION: CT CHEST SCREENING CLINICAL INFORMATION: Current smoker with 48 pack year history COMPARISON: None available. TECHNIQUE: Multidetector volumetric CT imaging of the chest is performed without contrast using low dose technique. Additional 2D coronal and sagittal reformatted images and axial 3D maximum intensity projection (MIP) images are generated on the CT workstation. This CT examination was performed using dose optimization techniques as appropriate, variously including the following: *Automated exposure control *Adjustment of mA and/or kV according to patient size (this includes techniques or standardized protocols for targeted exams where dose is matched to indication/reason for exam; i.e. extremities or head) *Use of iterative reconstruction technique DLP: 34 mGy-cm FINDINGS: BAIL BONDSMAN: Hyperinflation LUNGS: Trachea and bronchi are patent. Centrilobular emphysema. 1.2 cm ill-defined, perivascular spiculated density left upper lobe, 5:181, coronal 7:40. 2.4 x 2.3 x 2.5 cm irregular multiloculated peribronchial cystic/cavitary process without significant wall thickening, axial 5:314, coronal 7:41. 5 mm part solid nodule, 5:293. 3 mm RUL nodule, 5:87. Scattered 2 mm nodules. MEDIASTINUM: Unremarkable thyroid. No pathologic lymphadenopathy. Nonenlarged heart. No pericardial effusion. Nonenlarged aorta with atherosclerotic calcifications. Nonenlarged pulmonary arteries. CORONARY ARTERY CALCIFICATION: Severe. PLEURA: There is no pleural effusion. No pleural mass or thickening. AXILLA: No lymphadenopathy. UPPER ABDOMEN: Unremarkable OSSEOUS STRUCTURES: No suspicious osseous lesions. CT/CT lung screening IMPRESSION: 1.2 cm left upper lobe spiculated irregular opacity. 2.5 cm multiloculated cystic/cavitary peribronchial process right lower lobe. ASSESSMENT: Lung-RADS category 4X: Suspicious RECOMMENDATION: PET/CT and/or tissue sampling depending on probability of malignancy and comorbidities. One month LDCT may be recommended to address potentially infectious or inflammatory conditions. Dictated By: Tia Astorga MD Signed By: <Electronically signed by Tia Astorga MD in OV> 11/03/23 1221 DD/ 1023 TD/TT: Switch Maker: [facility] External Provider IMG CT PROCEDURES Edited Result - Final * HPV mRNA E6/E7 w/Reflex to HPV Genotypes 16, 18/45 (09/17/2023 1:15 PM EST) HPV nRNA E6/E7 Not Detected Not Detected [facility] Comment:Methodology: Transcr iption-Mediated AmplificationThis assay detects E6/E7 viral messenger RNA (mRNA) from 14high-risk HPV types (16,18,31,33,35,39,45,51,52,56,58,59,66,68).Cervical sources are required for HPV testing.If a vaginal source from a patient who has had atotal hysterectomy with removal of cervix wassubmitted, please contact the testing laboratoryfor alternative testing options.For additional information, please refer [email or web address](This link if provided for information/educational purposes only.)THIS TEST WAS PERFORMED AT:[facility] [place] [id number] ROMERO MD HPV mRNA E6/E7 [facility] HPV 16 RNA [facility] HPV 18/45 RNA [facility] 09/17/2023 1:15 PM EST 09/18/2023 8:30 AM EST Gracy Liu [facility] CYTOLOGY ORDERABLES F inal Result [facility] [address] [place] [phone] * Pap Smear (09/17/2023 1:15 PM EST) Swab Cervix uteri structure / Unknown 09/17/2023 1:15 PM EST 09/18/2023 8:30 AM EST Narrative [facility] - 09/24/2023 1:49 PM EST ----- ------- Name: Susan Greenwood ? Age/Sex: 63/F ? : 1960 Unit#: [id number] ?? Attend : ?Re09/17/23 ?Status: PRE REF ? Location: HO.LNP ?Disch: ? ----- ------- SPEC : [id number] ?RECD: 09/18/23 ? STATUS: ??SOUT ? REQ NUM: [id number] ? MIGUEL ANGEL: 09/17/234 ? SUBM DR: GRACY LIU CNM ? ENTERED: ??09/18/23 ?SP TYPE: Pap Smr ?OTHR : ? ORDERED: ??Pap Smear ? Interpretation ?? Satisfactory for evaluation. ?? Negative for intraepithelial lesion or malignancy. ?HPV mRNA E6/E7: ?NOT DETECTED ? This assay detects E6/E7 viral messenger RNA (mRNA) from 14 high-risk HPV types (16, 18, ?? 31, 33, 35, 39, 45, 51, 52, 56, 58, 59, 66, 68) ?? HPV testing performed by [employer], [place], [place]. ??See reference laboratory ?? portion of the EMR for entire report. ?Clinical Information LMP: Unknown date Previous PAP test: Unknown date/findings ? Material Received ?? ThinPrep-Cervical ----- ------- Signed (signature on file) NELSON Tubbs (ASCP) 09/24/23 [id number] ? ----- ------- ? END OF REPORT ? us Gracy Liu [facility] CYTOLOGY ORDERABLES F inal Result Performing Organization Address [facility] Co de Phone Number [facility] [address] [place] [phone] * Hepatitis C Antibody with Reflex to HCV, RNA, Quantitative, Real-Time PCR (08/13/2023 11:45 AM EST) Hepatitis C Antibody Nonreactive Nonreactive [facility] Comment:Antibodies to HCV no t detected; does not exclude early acuteHCV infection. Blood Venous blood specimen / Unknown 08/13/2023 11:45 AM EST 08/13/2023 1:00 PM EST us Nikki Pascal MD LAB BLOOD ORDERAB LES Final Result Performing Organization Address [facility] Co de Phone Number [facility] [address] [place] [phone] HIV-1/2 Antigen and Antibodies, Fourth Generation, with Reflexes (08/13/2023 11:45 AM EST) Pathologist [facility] [place] HIV AB/AG Nonreactive Nonreactive [facility] Comment:HIV-1 p24 Ag and/or HIV-1/HIV-2 Ab not detected.A test result that is nonreactive does not exclude thepossibility of exposure to or infection with HIV-1 and/orHIV-2. Nonreactive results in this assay for individualswith prior exposure to HIV-1 and/or HIV-2 may be due toantigen and antibody levels that are below the limit ofdetection of this assay.The [employer] HIV Ag/Ab Combo assay result andsupplemental assay results should be interpreted inconjunction with the patient's clinical presentation,history and other laboratory results. If the results areinconsistent with clinical evidence, additional testing issuggested to confirm the result. Blood Venous blood specimen / Unknown 08/13/2023 11:45 AM EST 08/13/2023 1:00 PM EST us Nikki Pascal MD LAB BLOOD ORDERAB LES Final Result [facility] [address] [place] [phone] from Last 3 Months or Most Recently Relevant to Health Maintenance Insurance [facility] C3 HSN FULL Care Teams Icd 9 Coder Relationship Specialty Start Date End Date Nikki Palma MD [address] [place] [phone] PCP - General Internal Medicine 08/13/23 Rahel Chin, PengD [address] [place] [address] [phone] Pharmacist Internal Medicine 12/10/23
== END 2024-11-17 10:59 | disposition home or self-care (01) ==
PROVIDERS: PCP Student in an Organized Health Care Education/Training Program; Visit Provider Internal Medicine Pulmonary Disease
DX: J44.9 Chronic obstructive pulmonary disease, unspecified (principal); R91.8 Other nonspecific abnormal finding of lung field
CPT/HCPCS: 99214

== ENCOUNTER → 2024-11-17 10:36 | Outpatient (BNVA) | payer MEDICAID, SELFPAY | PROVIDERS: PCP Student in an Organized Health Care Education/Training Program; Visit Provider Internal Medicine Pulmonary Disease | DX: J44.9 Chronic obstructive pulmonary disease, unspecified (principal); R91.8 Other nonspecific abnormal finding of lung field | CPT/HCPCS: 99212 ==